=== PATIENT | female | born 1970 | race Caucasian/White ===

== ENCOUNTER → 2017-10-28 07:27 | Outpatient (CLI) | payer MEDICAID, SELFPAY ==
--- NOTE | 2017-10-28 11:00 | NEURO ---
NCS and/or EMG Patient Report Ordering Doctor: Julio Cesar Kimbrough DATE OF SERVICE: 10/28/17 This is a left upper extremity EMG and nerve conduction study performed on this 47-year-old female with a possible ganglion cyst over her left wrist, as well as radiation of pain and nonspecific achiness in all of her fingers as well as her forearm. Left upper extremity sensory and motor nerve conduction studies performed demonstrating normal median motor and sensory, ulnar motor and sensory, and radial sensory responses. The median and ulnar F waves are symmetrically preserved. Left upper extremity needle electromyography was performed. Muscles evaluated included the first dorsal interosseous, abductor pollicis brevis, brachioradialis, biceps, and triceps muscles. All muscles demonstrated normal insertional activity with absence of pathologic spontaneous activity. Motor unit potential recruitment pattern and amplitude was normal in all muscles tested. Impression: Normal EMG and nerve conduction study of the left upper extremity
== END ==
PROVIDERS: Visit Provider Orthopaedic Surgery
DX: R20.8 Other disturbances of skin sensation (principal); M25.532 Pain in left wrist
CPT/HCPCS: 95860; 95886; 95910

== ENCOUNTER → 2017-11-05 12:28 | Outpatient (CLI) | payer MEDICAID, SELFPAY ==
--- NOTE | 2017-11-05 12:43 | MRI_ITS ---
STUDY: MRI LEFT WRIST WITH AND WITHOUT CONTRAST REASON FOR EXAM: Left wrist mass, pain, fall 5 months ago. TECHNIQUE: Standardized fat and water weighted pulse sequences were obtained in all 3 orthogonal planes, pre-and post contrast administration. 7 ml of Gadavist contrast material was administered intravenously for the contrast portion of the examination. COMPARISON: None. FINDINGS: Normal visualized distal radius and ulna. There is a bone island in the subchondral distal radius. Normal distal radioulnar articulation (DRUJ). Normal triangular fibrocartilaginous complex (TFCC). Normal carpal bones. Normal radiocarpal, intercarpal and midcarpal articulations. Normal pisotriquetral articulation. Normal visualized interosseous scapholunate ligament. Normal extensor tendons. Normal flexor tendons. Normal carpal tunnel with a normal median nerve. Normal carpometacarpal articulation of the thumb. Normal second through fifth carpometacarpal articulations. Normal visualized metacarpal bones. There is a lobulated ganglion cyst at the palmar radial aspect of the wrist corresponding to the skin marker (inversion recovery coronal images 7-10; inversion recovery axial images 13-16) measuring 1.1 x 1.8 x 1.3 cm (AP x transverse x length). There is contrast enhancement of the wall of the ganglion cyst (postcontrast T1 axial images 18-20). There is a very small ganglion cyst at the dorsal aspect of the afpjsvmd-pbpmza-fznlohsj articulation (inversion recovery axial image 13) measuring 0.3 cm in transverse dimension. MRI/Upper Ext Joint Only W/WO Cont IMPRESSION: Ganglion cyst at the palmar radial aspect of the wrist corresponding to the skin marker. Very small dorsal ganglion cyst. Electronically Signed: Miles Ross MD at 14:25 EDT Tel , Service support ,
== END ==
DX: R22.32 Localized swelling, mass and lump, left upper limb (principal)
CPT/HCPCS: 73223; A9585; A4216

== ENCOUNTER 2017-12-03 16:41 | Observation (INO) | payer MEDICAID, SELFPAY ==
[2017-12-03] VITALS (9 sets, daily range): BP systolic 77–137; BP diastolic 56–88; PULSE 76–105; RESP 15–21; TEMP 36.8–37.1; O2SAT 96–99; BMI 28.5; BMI 26.6; BMI 26.7
--- NOTE | 2017-12-03 16:59 | RAD_ITS ---
STUDY: X-RAY CHEST REASON FOR EXAM: Female, 47 years old. Chest pain TECHNIQUE: Single AP portable view of the chest. COMPARISON: Prior study of 02/21/2017 FINDINGS: The lungs are clear and expanded. There is no demonstrated pleural abnormality. Normal size heart. Normal mediastinum and andreina. Normal visualized pulmonary arteries. Normal visualized aortic arch and descending thoracic aorta. Normal visualized thoracic spine. Normal visualized ribs, clavicles, and shoulders. There is no demonstrated abnormality of the visualized soft tissue structures of the upper abdomen. RAD/Chest 1 View (Portable) IMPRESSION: Normal x-ray examination of the chest. Electronically Signed: Song Webster MD at 19:12 EDT , Service support ,
--- NOTE | 2017-12-03 16:59 | EKG12_ITS ---
Test Reason : REPEAT Blood Pressure : / mmHG Vent. Rate : 072 BPM Atrial Rate : 072 BPM P-R Int : 128 ms QRS Dur : 084 ms QT Int : 412 ms P-R-T Axes : 060 048 040 degrees QTc Int : 451 ms Normal sinus rhythm Normal ECG Confirmed by TARUN PANCHAL MD ([id number]), newspaper copy editor CINDI SOLOMON ([id number]) on 12/05/2017 2:11:23 PM Referred By: FANTA Confirmed By:TARUN PANCHAL MD
--- NOTE | 2017-12-03 17:03 | ED.DCSUM_ITS ---
- ER Visit Summary Date of Service: 12/03/17 Chief Complaint: Chest pain History of Present Illness: The patient is a 47 F with rather sudden onset of chest pain that started approximately 30 minutes prior to arrival. She describes it as a squeezing and stabbing sensation up the center of her chest. It does somewhat go into her back. She states she has pain with a deep breath. She was given aspirin and 1 nitro with EMS with no significant change. Patient does report a history of aortic valve regurg. She is a history of hypertension and high cholesterol. She does report having a heart cath 2 or 3 years ago. At that time there was no significant blockage. Physical Examination: Vital signs are unremarkable. Patient sitting upright in bed. She is anxious and intermittently tearful. Head neck examination is unremarkable. Heart is regular rate and rhythm. Lung sounds are clear. Abdomen is soft and nontender. Lower external examination was no calf tenderness or edema. She has equal pulses throughout. Test Results: EKG is sinus at [address] change. Portable chest x- ray unremarkable. CBC was a white count of 12.3 and a hemoglobin of 15.8. Chemistry studies are normal. Troponin is less than 0.015. D-dimer is less than 0.27. Emergency Department Course and Treatment: Patient was given aspirin and 1 nitro with EMS. This did not change her pain. She was given 0.5 mg of Dilaudid along with Zofran ?2 doses in the emergency room. Due to the continued pain CTA of the chest was obtained and is unremarkable. Repeat EKG was obtained and is unchanged. Patient will be admitted for further treatment and evaluation. Treatment Plan: [] Disposition: Admit Impression: Chest pain This note was generated with [employer] dictation software. It may contain incorrect words, spelling, and punctuation that were not noted in review of the chart prior to signing ED Disposition - Plan for ED Patient: Chief Complaint: Chest Pain
[2017-12-03] MEDS: HYDROmorphone 0.5 MG/0.5 ML SYRINGE IV ×2 (17:05→17:50)
[2017-12-03] MEDS: Ondansetron 4 MG/2 ML Vial IV ×2 (17:05→17:50)
[2017-12-03] MEDS: 0.9% Normal Saline 1,000 ML 150 ML IV (17:11)
[2017-12-03 17:23] LABS: Absolute Lymphocyte Count 3.74 X10^3/ul (0.83-4.51); Absolute Neutrophil Count 7.4 X10^3/uL (2.0-7.7); Basophil# 0.04 X10^3/uL; Basophil% 0.3 % (0-1); Eosinophil# 0.24 X10^3/uL; Hematocrit 45.8 % (37-47); Hemoglobin 15.8 g/dl (12.0-15.0); Lymphocyte # 3.74 X10^3/ul (4.0); Lymphocyte % 30.4 % (19-41); Mean Corp Hgb Conc 34.5 g/gl (32-36); Mean Corpuscular Hgb 33.3 pg (27.0-32.0); Mean Corpuscular Volume 96.4 fL (81-99); Mean Platelet Vol. 11.4 fl (6.2-12.0); Monocyte# 0.84 X10^3/uL; Monocyte% 6.8 % (0-10); Neutrophil # 7.42 X10^3/uL (2.7-7.7); Neutrophil % 60.3 % (47-70); Platelet Count 330 K/mm3 (150-450); RBC Distribution Width CV 13.2 % (11.6-14.6); RBC Distribution Width SD 45.9 fl (35.1-43.9); Red Blood Count 4.75 M/mm3 (4.2-5.4); White Blood Count 12.3 K/mm3 (4.4-11.0)
[2017-12-03 17:24] LABS: POSITIVE COUNT NO; POSITIVE DIFFERENTIAL NO; POSITIVE MORPHOLOGY NO
[2017-12-03 17:35] LABS: BUN 10 mg/dL (7-18); Estimated Creatinine Clearance 68.76 ml/min; Glucose 98 mg/dL (74-106)
[2017-12-03 17:36] LABS: Anion Gap 8 (5-15); BUN/Creat Ratio 12.5 RATIO (10-20); Calcium,Total 9.7 mg/dL (8.5-10.1); Chloride 104 mmol/L (98-107); EST Glomerular Filtration Rate 81 mL/min (>60); Est Glom Filt Rate - Afr Amer 98 mL/min (>60); Potassium 3.7 mmol/L (3.5-5.1); Sodium Level 140 mmol/L (136-145)
[2017-12-03 17:46] LABS: D-Dimer Quantitative (DVT/PE) < 0.27 FEU/ug/m (0.27-0.49)
--- NOTE | 2017-12-03 18:04 | CT_ITS ---
STUDY: CTA CHEST REASON FOR EXAM: Female, 47 years old. Sternal pain x30 minutes RADIATION DOSAGE (If Supplied By Facility): CTDIvol = ( 5.48 ) mGy, DLP = ( 228.57 ) mGycm TECHNIQUE: The examination was performed with the intravenous administration of 75 ml of Isovue 370 contrast material. Post-processing of the angiographic images was performed, with multiplanar reformation and 3D reconstruction. Individualized dose optimization techniques were used for this CT. COMPARISON: None. FINDINGS: Normal enhancement of the main pulmonary artery and right and left pulmonary arteries. Normal enhancement of the bilateral peripheral pulmonary arteries. There is no demonstrated pulmonary embolism. Normal thoracic aorta and visualized great vessels. There is no demonstrated aortic dissection. Normal heart and pericardium. Normal mediastinum. Normal hilar regions. Normal visualized trachea and bronchi. The lungs are well expanded. There are mild emphysematous changes of the lungs. Normal pleura. Normal chest wall structures. Normal osseous structures. Normal visualized upper abdomen. CT/CTA Chest W/WO Contrast IMPRESSION: Normal CTA chest examination, without a demonstrated pulmonary embolism or arterial dissection. There are mild emphysematous changes of the lungs. Electronically Signed: Song Webster MD at 18:55 EDT , Service support ,
--- NOTE | 2017-12-03 19:41 | EKG12_ITS ---
Test Reason : ADMISSION EKG Blood Pressure : / mmHG Vent. Rate : 078 BPM Atrial Rate : 078 BPM P-R Int : 130 ms QRS Dur : 082 ms QT Int : 394 ms P-R-T Axes : 060 055 046 degrees QTc Int : 449 ms Normal sinus rhythm Normal ECG When compared with ECG of 03-DEC-2017 16:44, MANUAL COMPARISON REQUIRED, DATA IS UNCONFIRMED Confirmed by ANSLEY LUNA, TARUN ([id number]), newspaper managing editor CINDI SOLOMON ([id number]) on 12/09/2017 2:17:00 PM Referred By: DR SEBASTIAN Confirmed By:TARUN PANCHAL MD
--- NOTE | 2017-12-03 19:55 | HP.PCM_ITS ---
Problem List (1) Tobacco use Status: Chronic (2) COPD (chronic obstructive pulmonary disease) Status: Chronic Qualifiers: Chronic bronchitis type: unspecified (3) Anxiety Status: Chronic (4) HLD (hyperlipidemia) Status: Chronic Qualifiers: Hyperlipidemia type: unspecified Qualified Code(s): E78.5 - Hyperlipidemia , unspecified (5) TIA (transient ischemic attack) Status: Chronic Qualifiers: Transient cerebral ischemia type: unspecified Qualified Code(s): G45.9 - Transient cerebral ischemic attack, unspecified (6) HTN (hypertension) Status: Chronic Qualifiers: Hypertension type: essential hypertension Qualified Code(s): I10 - Essential (primary) hypertension (7) Chest pain Status: Acute Qualifiers: Chest pain type: unspecified Qualified Code(s): R07.9 - Chest pain, unspecified History of Present Illness Date of Admission: 12/03/17 Chief Complaint: Chest pain The patient is a 47 y/o F w/ PMHx: Tobacco use, Chronic COPD, HTN, HLD, Hx TIA, Anxiety, Hx Prior Cocaine Usage who presents to the [facility] ED on 12/03/17 with onset prior to ED arrival tight squeezing chest discomfort in the midsternal region with radiation to the back, also noting sharp intermittent stabbing pain with this and noting increased pain with deep inspiration with dyspnea 10/10 initially with dyspnea associated with no nausea, emesis or diaphoresis associating while at rest watching TV. In the ED work-up included T 98.8, HR 105 -->81, BP 137/75-->77/62 after pain regimen, RR 20-->16, 97% on RA, CBC w/ WBC 12.3, Hgb 15.8, Plts 330 without shift, D-dimer < 0.27, unremarkable BMP, trop < 0.015, CXR without acute findings, CTPA without evidence PE, chronic COPD changes, EKG w/ SR, no acute evidence of chronic changes. In the ED patient administered zofran, dilaudid, fentanyl, asa therapy. Past Medical History Past Medical History (Chronic Problems): Chronic Problems Tobacco use (Chronic) COPD (chronic obstructive pulmonary disease) (Chronic) Anxiety (Chronic) HLD (hyperlipidemia) (Chronic) TIA (transient ischemic attack) (Chronic) Anterior scleritis of right eye (Chronic) HTN (hypertension) (Chronic) Allergies codeine Allergy (Verified 12/03/17 16:48) Itching gabapentin [From Neurontin] Adverse Reaction (Verified 12/03/17 16:48) Swelling Home Medications: Ambulatory Orders Medication Instructions Recorded ALPRAZolam [Xanax] 0.5 mg PO DAILY 04/30/14 Losartan/Hydrochlorothiazide 1 tab PO DAILY 04/30/14 [Hyzaar 100-25 Tablet] Oxycodone HCl/Acetaminophen 1 tablet PO BID PRN PRN 01/18/16 [Percocet 7.5-325 mg Tablet] Ibuprofen [Motrin] 800 mg PO TID PRN PRN #40 tablet 01/26/16 Guaifenesin/Pseudoephedrne HCl 1 each PO BID #14 tab.er.12h 02/21/17 [Mucinex D ER 1,200-120 mg Tab] Albuterol Sulfate [Ventolin Hfa] 2 puff IH Q4H PRN PRN 12/03/17 Rosuvastatin Calcium [Rosuvastatin 20 mg PO DAILY 12/03/17 Calcium] Surgical History: - - Bilateral knee arthroplastic surgery, bilateral ulnar nerve repositioning, carpal tunnel release, right shoulder surgery ?2, hysterectomy, recent left ganglion cyst removal wrist. Psychiatric History: Anxiety SERVICE OBSERVER History: No pertinent SERVICE OBSERVER history Lives: Spouse/ Significant Other Smoking Status: Current every day smoker - 1 ppd. Tobacco Use: Cigarettes Alcohol: Occasional Drugs: None - Past usage of cocaine, notes clean x 2-3 years. - *Family History Paternal History Items: Heart Disease, Hypertension, Stroke - Father had brain aneurysm Maternal History Items: Heart Disease, Hypertension Review of Systems Constitutional: Denies: Chills, Fever, Weight Change HEENT: Denies: Head Aches, Sinus Congestion, Sinus Drainage Cardiovascular: Reports: Chest Pain, Chest Tightness. Denies: Palpitations Respiratory: Reports: Pleuritic Pain, Shortness of Breath. Denies: Cough, Shortness of breath at rest, Sputum production, Wheezing Gastrointestinal: Denies: Abdominal Pain, Nausea, Vomiting Genitourinary: Denies: Dysuria Musculoskeletal: Reports: Back Pain. Denies: Joint Pain, Joint Tenderness Skin: Denies: Rash, Wounds Neurological: Denies: Numbness, Tingling, Focal weakness Psychiatric: Denies: Anxiety, Depression, Homicidal Ideations, Suicidal Ideations Hematologic/ Lymphatic: Denies: Easy Bruising, Easy Bleeding VTE Information - Inpt Only VTE Present on Admission: No VTE Mechan Device Prophylaxis: SCD's VTE Pharm Prophylaxis ordered?: Yes Patient Problems: Active and Suspected Problems Chest pain (Acute) Subjective: Seated upright in the ED bed, notes ongoing discomfort, worse with inspiration. Objective: Physical Examination: General: awake, alert, oriented x 3 and cooperative, seated upright in the ED bed, notes ongoing discomfort, reproducible discomfort. Skin: normal color, turgor, no icterus, cyanosis. HEENT: AT/NC, EOMI, PERRLA, mildly dry MM, no carotid bruits or JVD noted. Lungs: Diminished bases, mild effort, difficult as noting pain w/ inspiration, no rales, ronchi or wheezing. Heart: Regular rate and rhythm; no gallop, rub audible, reproducible discomfort w/ anterior palpation of the chest. Abdomen: soft, NTTP, ND, normal BS, no HSM. Extremities: no cyanosis, clubbing, or edema. Neurological: patient awake, alert, oriented x 3; cognitive function intact; pupils equally reactive to light and accomodation; cranial nerves II-XII grossly normal, moving all 4 extremities, no focal deficits, strength severely globally decreased secondary to acute presentation. Psychiatric: affect appears normal, no acute evidence of depressive or anxiety feelings. - Physical Exam Vital Signs Temp Pulse Resp BP Pulse Ox 98.8 F 81 16 77/62 L 97 12/03/17 16:44 12/03/17 18:42 12/03/17 18:42 12/03/17 18:42 12/03/17 18:42 Oxygen Flow Rate (L/min) 2 Oxygen Delivery Method Room Air Weight: 155 lb 13.869 oz Body Mass Index (BMI) 28.5 Finger Stick Blood Glucose 89 Laboratory Tests Past 24 Hrs 12/03/17 12/03/17 12/03/17 16:52 16:52 16:52 WBC 12.3 H RBC 4.75 Hgb 15.8 H Hct 45.8 MCV 96.4 MCH 33.3 H MCHC 34.5 RDW 13.2 RDW Differential 45.9 H Plt Count 330 MPV 11.4 Immature Gran % (Auto) 0.200 Neut % (Auto) 60.3 Lymph % (Auto) 30.4 Worth % (Auto) 6.8 Eos % (Auto) 2.0 Baso % (Auto) 0.3 Absolute Neuts (auto) 7.4 Absolute Lymphs (auto) 3.74 Total Counted Not Reportable D-Dimer Quant (PE/DVT) < 0.27 L Sodium 140 Potassium 3.7 Chloride 104 Carbon Dioxide 28.0 Anion Gap 8 BUN 10 Creatinine 0.80 Estim Creat Clear Calc 68.76 Est GFR (MDRD) Af Amer 98 Est GFR (MDRD) Non-Af 81 BUN/Creatinine Ratio 12.5 Glucose 98 Calcium 9.7 Troponin I < 0.015 Assessment/Plan Active and Suspected Problems Chest pain (Acute) The patient is a 47 y/o F w/ PMHx: Tobacco use, Chronic COPD, HTN, HLD, Hx TIA, Anxiety, Hx Prior Cocaine Usage who presents to the [facility] ED on 12/03/17 with onset prior to ED arrival tight squeezing chest discomfort in the midsternal region with radiation to the back, noting increased pain with deep inspiration with dyspnea 10/10 initially with dyspnea associated with no nausea, emesis or diaphoresis associating while at rest watching TV. (1) Atypical Chest Pain: Likely musculoskeletal but notable history. In the ED work-up included T 98.8, HR 105-->81, BP 137/75-->77/62 after pain regimen, RR 20-->16, 97% on RA, CBC w/ WBC 12.3, Hgb 15.8, Plts 330 without shift, D-dimer < 0.27, unremarkable BMP, trop < 0.015, CXR without acute findings, CTPA without evidence PE, chronic COPD changes, EKG w/ SR, no acute evidence of chronic changes. Will admit to telemetry, place on a monitored bed to assure no acute myocardial infarction with serial cardiac enzymes and EKGs. Patient is able to perform exercise and does not have LBBB, V-pacing, ST-T changes, LVH, prior PCI history and is not on digoxin thus will proceed with AM exercise stress echo test. ASA, NG, morphine. FLP in AM. Mag pending. If cardiac evaluation unremarkable would plan to initiate toradol, possible discharge to home on mobic regimen. (2) Hypertension: Continue home regimen including losartan, hydrochlorothiazide w/ hold parameters given hypotension w/ pain regimen while in the ED, PRN hydralazine. (3) Hyperlipidemia: Continue home statin regimen. AM FLP. (4) Chronic COPD: ATC duonebs, PRN albuterol, HOB, IS parameters. (5) Tobacco Abuse: Encouraged cessation, inpatient consultation per RT, NR if desired. (6) History of Polysubstance abuse: Prior hx cocaine, will obtain UDS. (7) DVT Prophylaxis: SCDs, lovenox. Code Visit OBSV E&M: 49771 Initial observation care L3
[2017-12-03] MEDS: fentaNYL 100 MCG/2 ML Ampul 12.5 MCG IV (19:59)
--- NOTE | 2017-12-03 20:33 | EKG12_ITS ---
Test Reason : CHEST PAIN Blood Pressure : / mmHG Vent. Rate : 100 BPM Atrial Rate : 100 BPM P-R Int : 118 ms QRS Dur : 074 ms QT Int : 352 ms P-R-T Axes : 069 060 061 degrees QTc Int : 454 ms Normal sinus rhythm Normal ECG Confirmed by TARUN PANCHAL MD ([id number]), manager editorial CINDI SOLOMON ([id number]) on 12/05/2017 2:07:31 PM Referred By: TODD Confirmed By:TARUN PANCHAL MD
[2017-12-03] MEDS: ALPRAZolam 0.5 MG Tablet PO (21:25)
[2017-12-03] MEDS: Ketorolac 30 MG/ML Syringe IV (21:25)
[2017-12-03] MEDS: 0.9% NaCl Peripheral Flush Adult/Peds IV (21:27)
[2017-12-03] MEDS: 0.9% Normal Saline 1,000 ML 100 ML IV (21:37)
[2017-12-03 21:41] LABS: Magnesium 2.2 mg/dL (1.6-2.6)
[2017-12-03] MEDS: HYDROcodone Bitartrate/Apap 5/325 Tablet PO (22:26)
[2017-12-03 22:30] LABS: Amphetamine Urine VISTA NEGATIVE (<1000 ng/mL); Barbiturate Urine VISTA NEGATIVE (< 200 ng/mL); Benzodiazepine Urine VISTA POSITIVE (< 200 ng/mL); Cocaine Urine VISTA NEGATIVE (< 300 ng/mL); Ecstacy Urine VISTA NEGATIVE (< 500 ng/mL); Methadone Urine VISTA NEGATIVE (< 300 ng/mL); PCP Urine VISTA NEGATIVE (< 25 ng/mL); THC Urine VISTA NEGATIVE (< 50 ng/mL); Vista UDS pH Range 5
[2017-12-03] MEDS: Famotidine 20 MG Tablet PO (22:40)
[2017-12-03] MEDS: Ipratropium/Albuterol Sulfate 3 ML AMPUL.NEB INHALATION (23:34)
[2017-12-04] VITALS (9 sets, daily range): BP systolic 103–183; BP diastolic 44–77; PULSE 68–86; RESP 16–18; TEMP 36.6–36.9; O2SAT 95–98
[2017-12-04] MEDS: Morphine 4 MG/ML Syringe IV (02:34)
[2017-12-04] MEDS: 0.9% NaCl Peripheral Flush Adult/Peds IV (02:39)
[2017-12-04] MEDS: Albuterol 2.5 MG/3 ML VIAL.NEB. INHALATION (03:12)
[2017-12-04 03:56] LABS: Hematocrit 40.3 % (37-47); Hemoglobin 13.3 g/dl (12.0-15.0); Mean Corpuscular Hgb 32.8 pg (27.0-32.0); Mean Corpuscular Volume 99.3 fL (81-99); Mean Platelet Vol. 11.2 fl (6.2-12.0); Platelet Count 243 K/mm3 (150-450); RBC Distribution Width CV 13.2 % (11.6-14.6); RBC Distribution Width SD 47.4 fl (35.1-43.9); Red Blood Count 4.06 M/mm3 (4.2-5.4); Scan Indicated on CBC? Y/N NO; White Blood Count 9.5 K/mm3 (4.4-11.0)
[2017-12-04 04:08] LABS: Prothrombin Time (Protime)PT. 13.2 SECONDS (11.7-14.9)
[2017-12-04 04:09] LABS: Partial Thromboplast Time 27.2 Seconds (24.1-36.2)
[2017-12-04 04:17] LABS: Anion Gap 7 (5-15); BUN 12 mg/dL (7-18); BUN/Creat Ratio 17.3 RATIO (10-20); Calcium,Total 8.6 mg/dL (8.5-10.1); Chloride 108 mmol/L (98-107); Cholesterol 123 mg/dL (200); Creatinine, Serum 0.69 mg/dL (0.55-1.02); EST Glomerular Filtration Rate 96 mL/min (>60); Est Glom Filt Rate - Afr Amer 117 mL/min (>60); Estimated Creatinine Clearance 79.72 ml/min; Glucose 92 mg/dL (74-106); High Density Lipoprotein 37 mg/dL; Potassium 3.6 mmol/L (3.5-5.1); Sodium Level 140 mmol/L (136-145); Triglycerides 144 mg/dL; Very Low Density Lipoprotein 29 mg/dL (5-40)
--- NOTE | 2017-12-04 05:55 | EKG12_ITS ---
Test Reason : AM EKG Blood Pressure : / mmHG Vent. Rate : 071 BPM Atrial Rate : 071 BPM P-R Int : 158 ms QRS Dur : 084 ms QT Int : 408 ms P-R-T Axes : 075 058 053 degrees QTc Int : 443 ms Normal sinus rhythm Normal ECG When compared with ECG of 03-DEC-2017 21:41, MANUAL COMPARISON REQUIRED, DATA IS UNCONFIRMED Confirmed by ANSLEY LUNA, TARUN ([id number]), purchase request editor CINDI SOLOMON ([id number]) on 12/12/2017 3:04:58 PM Referred By: DR SEBASTIAN Confirmed By:TARUN PANCHAL MD
--- NOTE | 2017-12-04 05:55 | STEWCON_ITS ---
Reason For Study: CHEST PAIN Stress Results Protocol: Dobutamine Stress Echocardiogram Maximum Predicted HR: 173 bpm Target HR: 147 bpm% Maximum Predicted HR: 87 % DurationHeart Rate Stage (mm:ss) (bpm) BPDos e BASELINE 65 106/79 DSE- 10 MCG 3:21 83 128/6410.00 DSE- 20 MCG 3:09 13 3 112/8420.00 DSE- 30 MCG 1:08 15 1 / 30. 00 RECOVERY 97 113/67 Stress Duration: 7:38 mm:ss Maximum Stress HR: 151 bpm Baseline Echocardiogram Findings The estimated ejection fraction is 65 %. Stress Echo Wall motion Data Resting WMIntermediate WMStress WM Resting Wall Motion Wall Motion Stress No regional wall motion No regional wall motion abnormalities noted. abnormalities noted. EKG Data The baseline ECG demonstrates normal sinus rhythm with at rate of _ beats per minute. During stress, there were no ST or T wave changes noted to suggest ischemia. No arrhythmias noted. No clinical angina was noted. The patient was titrated from 10 mcg to a maximun of 30 mcg of dobutamine during the stress. The maximum heart rate attained was 151 beats per minute. This was 87% of maximum predicted heart rate. Interpretation Summary The estimated ejection fraction is 65 %. Normal adequate dobutamine echocardiogram. Negative for ischemia by ECG and ECHO criteria. No anginal symptoms noted. No arrhythmias noted. Appropriate BP response to dobutamine. Final LVEF=75%. The patient was titrated from 10 mcg to a maximun of 30 mcg of dobutamine during the stress. Doppler Measurements & Calculations AI max jeremy: 473.1 cm/sec AI max P.5 mmHg AI dec slope: 264.5 cm/sec2 AI P1/2t: 524.0 msec Ordering Physician: Vidhya Saavedra Referring Physician: SHEYLA MCMAHAN Performed By: Torrey Mcdonald RCS
[2017-12-04] MEDS: 0.9% Normal Saline 1,000 ML 100 ML IV (05:58)
[2017-12-04] MEDS: Losartan Potassium 100 MG Tablet PO (05:59)
[2017-12-04] MEDS: Aspirin E.C. 81 MG Tablet PO (06:00)
[2017-12-04] MEDS: ALPRAZolam 0.5 MG Tablet PO (07:10)
[2017-12-04] MEDS: Ipratropium/Albuterol Sulfate 3 ML AMPUL.NEB INHALATION (07:21)
--- NOTE | 2017-12-04 09:28 | NURSING ---
Pt to stress lab at this time.
--- NOTE | 2017-12-04 11:13 | NURSING ---
In room per pt request. Pt angry that she can not have anything to eat following stress test. Explained to pt that she can have clear liquids until stress report comes back. Also explained the reason behind this is in case the stress is abnormal and a cardiac cath is indicated. Pt states I dont fucking care. I'm hungry and want a cigarette. Pt was offered clears and a nicotene patch and refused both. Pt continued to curse at staff and decline options provided.
--- NOTE | 2017-12-04 11:18 | NURSING ---
Pt cursing at staff, moving arms and refuses to hold still for bp.
--- NOTE | 2017-12-04 11:40 | PCM.DC ---
- Discharge Diagnoses Current Active Problems: Current Active and Chronic Problems Tobacco use (Chronic) COPD (chronic obstructive pulmonary disease) (Chronic) Anxiety (Chronic) HLD (hyperlipidemia) (Chronic) TIA (transient ischemic attack) (Chronic) Chest pain (Acute) You will use the following diet at home:: No restrictions Discharge Activity: Return to Normal Activity, May not drive while taking narcotic pain medications. Allergies/Adverse Reactions: Allergies codeine Allergy (Verified 12/03/17 16:48) Itching gabapentin [From Neurontin] Adverse Reaction (Verified 12/03/17 16:48) Swelling Medications to take at Discharge ALPRAZolam [Xanax] 1 mg PO DAILY 04/30/14 Losartan/Hydrochlorothiazide [Hyzaar 100-25 Tablet] 1 tab PO DAILY 04/30/14 Oxycodone HCl/Acetaminophen [Percocet 7.5-325 mg Tablet] 1 tablet PO BID PRN PRN 01/18/16 Ibuprofen [Motrin] 800 mg PO TID PRN PRN #40 tablet 01/26/16 Albuterol Sulfate [Ventolin Hfa] 2 puff IH Q4H PRN PRN 12/03/17 Rosuvastatin Calcium [Rosuvastatin Calcium] 20 mg PO DAILY 12/03/17 Primary Care Physician: Yusuf Serrano,Out of [Primary Care Provider] - Please follow up with your Primary Care Physician in: in 3-5 days Proposed Discharge Date: 12/04/17
--- NOTE | 2017-12-04 11:43 | PCM.DC.SUM ---
Discharge Date and Diagnosis - Problem List Patient Problems: Active and Suspected Problems Chest pain (Acute) Date of Admission: 12/03/17 Date of Discharge: 12/04/17 - Primary Discharge Diagnosis Active and Suspected Problems Chest pain (Acute) - Secondary Discharge Diagnosis Chronic Problems Tobacco use (Chronic) COPD (chronic obstructive pulmonary disease) (Chronic) Anxiety (Chronic) HLD (hyperlipidemia) (Chronic) TIA (transient ischemic attack) (Chronic) Anterior scleritis of right eye (Chronic) HTN (hypertension) (Chronic) Hospital Course and Treatment Imaging Results: Clinical Impression(s) from Imaging Studies Chest X-Ray 12/03/17 16:59 IMPRESSION: Normal x-ray examination of the chest. Electronically Signed: Song Webster MD at 19:12 EDT , Service support , Chest CTA 12/03/17 18:04 IMPRESSION: Normal CTA chest examination, without a demonstrated pulmonary embolism or arterial dissection. There are mild emphysematous changes of the lungs. Electronically Signed: Song Webster MD at 18:55 EDT , Service support , Summary of Care Provided: The patient is a 47 year old F was past medical history significant for hypertension, with chest pain 1. Chest pain patient was placed on a monitored bed did rule out IA with serial cardiac enzymes patient underwent a stress echo which was negative for stress-induced ischemia patient also underwent CT of the chest with contrast which is negative for pulmonary embolism 2. Hypertension-blood pressure controlled, home medications continued with dose adjustment as needed 3. Dyslipidemia-patient is on statin therapy, continued at home dose 4. Tobacco dependence: Patient was counseled on cessation of the nicotine patch for tobacco cravings. 5. COPD confirmed with CT of the chest 7. DVT prophylaxis Discharge Activity: Return to Normal Activity, May not drive while taking narcotic pain medications. Home Medications: Medications to take at Discharge ALPRAZolam [Xanax] 1 mg PO DAILY 04/30/14 Losartan/Hydrochlorothiazide [Hyzaar 100-25 Tablet] 1 tab PO DAILY 04/30/14 Oxycodone HCl/Acetaminophen [Percocet 7.5-325 mg Tablet] 1 tablet PO BID PRN PRN 01/18/16 Ibuprofen [Motrin] 800 mg PO TID PRN PRN #40 tablet 01/26/16 Albuterol Sulfate [Ventolin Hfa] 2 puff IH Q4H PRN PRN 12/03/17 Rosuvastatin Calcium 20 mg PO DAILY 12/03/17 Primary Care Physician: Yusuf Doctor,Out of [Primary Care Provider] - Please follow up with your Primary Care Physician in: in 3-5 days Medical Necessity - Tobacco Use Smoking Status: Current every day smoker Tobacco Use: Cigarettes Meaningful Use Info Meaningful Use Diagnoses (Choose all that apply): None applicable Code Visit OBSV E&M: 03382 Observation care discharge
== END 2017-12-04 13:00 | disposition home or self-care (01) ==
LOC: ED 18:16 → PCU 19:59
PROVIDERS: Admitting Provider Family Medicine; Emergency Provider Emergency Medicine; Visit Provider Internal Medicine
DX: R07.89 Other chest pain (principal); I10 Essential (primary) hypertension; J44.9 Chronic obstructive pulmonary disease, unspecified; E78.5 Hyperlipidemia, unspecified; F41.9 Anxiety disorder, unspecified; Z79.899 Other long term (current) drug therapy; Z86.73 Personal history of transient ischemic attack (TIA), and cerebral infarction without residual deficits; F17.210 Nicotine dependence, cigarettes, uncomplicated
CPT/HCPCS: 36415; 71045; 71275; 80048; 80061; 80307; 83735; 84484; 85025; 85027; 85379; 85610; 85730; 93005; 93017; 93350; 94640; 96361; 96374; 96375; 96376; 99218; 99285; 99406; J7030; Q9967; A4216; G0378; J2405

== ENCOUNTER → 2017-12-25 13:11 | Outpatient (CLI) | payer MEDICAID, SELFPAY ==
[2017-12-25 13:43] VITALS: PULSE 76; PULSE 81; PULSE 84; PULSE 88; PULSE 91; PULSE 92; PULSE 93; PULSE 94; O2SAT 95; O2SAT 96; O2SAT 97; O2SAT 98
--- NOTE | 2017-12-25 14:13 | PCM.PSN.6M ---
PSN 6 Minute Walk Test - 6 Minute Walk Test 6 Minute Walk Test: 6 Minute Walk Test PSN:6-Minute Walk Test Start: 12/25/17 13:43 Freq: Status: Active Protocol: RESP.6MINW Document 12/25/17 13:43 [facility] (Rec: 12/25/17 13:46 [facility] [id number]) 6 Minute Walk Test Date Performed 12/25/17 Time Performed 13:30 Height 5 ft 3 in Weight: 68.039 kg Weight in Pounds 150.[address]: Tylor Walker FIO2 (% Oxygen) 21 Assistive device used: None Pre-test Oxygen Delivery Method Room Air Pulse Ox (%) 98 Pulse Rate (60-100 beats/min) 76 Dyspnea Raquel Scale (0-10) 1 1st minute Oxygen Delivery Method Room Air Pulse Ox (%) 96 Pulse Rate (60-100 beats/min) 84 Dyspnea Raquel Scale (0-10) 1 2nd minute Oxygen Delivery Method Room Air Pulse Ox (%) 96 Pulse Rate (60-100 beats/min) 88 Dyspnea Raquel Scale (0-10) 1 3rd minute Oxygen Delivery Method Room Air Pulse Ox (%) 96 Pulse Rate (60-100 beats/min) 91 Dyspnea Raquel Scale (0-10) 1 4th minute Oxygen Delivery Method Room Air Pulse Ox (%) 97 Pulse Rate (60-100 beats/min) 94 Dyspnea Raquel Scale (0-10) 2 Number of Rests Taken 1 Reported Symptoms Increased Work of Breathing 5th minute Oxygen Delivery Method Room Air Pulse Ox (%) 96 Pulse Rate (60-100 beats/min) 93 Dyspnea Raquel Scale (0-10) 2 Number of Rests Taken 1 Reported Symptoms Increased Work of Breathing 6th minute Oxygen Delivery Method Room Air Pulse Ox (%) 95 Pulse Rate (60-100 beats/min) 92 Dyspnea Raquel Scale (0-10) 2 Reported Symptoms Increased Work of Breathing Post-test Oxygen Delivery Method Room Air Pulse Ox (%) 97 Pulse Rate (60-100 beats/min) 81 Dyspnea Raquel Scale (0-10) 1 Full Laps Walked 17 Partial Lap, Number of Tiles Walked 42 Total Distance Walked (ft) 1045 - Interpretation Interpretation: The patient was able to ambulate 1045 feet over the course of 6 minutes on room air with no assistive devices, but did require 2 breaks secondary to dyspnea and leg fatigue. The patient experienced no significant desaturation or tachycardia during testing. These findings are consistent with a musculoskeletal limitation exercise tolerance. - Recommendations Recommendations: No supplemental oxygen is indicated at this time.
== END ==
PROVIDERS: Visit Provider Internal Medicine Critical Care Medicine
DX: J44.9 Chronic obstructive pulmonary disease, unspecified (principal); Z72.0 Tobacco use
CPT/HCPCS: 94618

== ENCOUNTER → 2018-01-08 08:45 | Outpatient (CLI) | payer MEDICAID, SELFPAY ==
--- NOTE | 2018-01-09 05:57 | PFTCOMP ---
COMPLETE PULMONARY FUNCTION TEST INTERPRETATION Brief HPI: Patient is a 47 year old female, currently under the care of myself, who presents to [facility] for complete pulmonary function tests secondary to diagnosis of COPD. Respiratory therapist reports poor effort and reproducible results. Interpretation: Forced expiration spirometry shows a moderate large airways obstructive ventilatory defect with an FEV1 of 67% predicted. There is a significant bronchodilator response in FVC by ATS criteria. Spirograms are of poor quality and plateau slowly, indicating slowly emptying areas of the lungs. The respiratory flow volume loop shows decreased expiratory flow rates at high lung volumes consistent with small airways obstruction. Lung volumes by body plethysmography show a normal total lung capacity at 4.07 L, 89% predicted. FRC and RV are elevated out of proportion. Lung volume measurements are consistent with hyperinflation and air-trapping. Diffusion capacity by carbon monoxide is normal at 87% predicted. The airway resistance is elevated. No previous pulmonary function tests were available for review. Impression: Partially reversible moderate large airways obstructive ventilatory defect with preserved diffusion capacity in a pattern consistent with chronic bronchitis
--- NOTE | 2018-01-09 06:00 | PFTCOMP_ITS ---
COMPLETE PULMONARY FUNCTION TEST INTERPRETATION Brief HPI: Patient is a 47 year old female, currently under the care of myself, who presents to [facility] for complete pulmonary function tests secondary to diagnosis of COPD. Respiratory therapist reports poor effort and reproducible results. Interpretation: Forced expiration spirometry shows a moderate large airways obstructive ventilatory defect with an FEV1 of 67% predicted. There is a significant bronchodilator response in FVC by ATS criteria. Spirograms are of poor quality and plateau slowly, indicating slowly emptying areas of the lungs. The respiratory flow volume loop shows decreased expiratory flow rates at high lung volumes consistent with small airways obstruction. Lung volumes by body plethysmography show a normal total lung capacity at 4.07 L , 89% predicted. FRC and RV are elevated out of proportion. Lung volume measurements are consistent with hyperinflation and air-trapping. Diffusion capacity by carbon monoxide is normal at 87% predicted. The airway resistance is elevated. No previous pulmonary function tests were available for review. Impression: Partially reversible moderate large airways obstructive ventilatory defect with preserved diffusion capacity in a pattern consistent with chronic bronchitis
== END ==
PROVIDERS: Visit Provider Internal Medicine Critical Care Medicine
DX: J44.9 Chronic obstructive pulmonary disease, unspecified (principal); Z72.0 Tobacco use
CPT/HCPCS: 94060; 94726; 94729

== ENCOUNTER → 2018-07-08 12:14 | Outpatient (CLI) | payer MEDICAID, SELFPAY ==
[2018-01-13 10:11] VITALS: BMI 28.9
--- OUTSIDE RECORDS SUMMARY | 2018-08-24 15:44 | XMS RPT_ITS ---
:1970 Author Organization [employer] Address [address] [place] [address] Phone Care Team Providers Name Role Phone Mickie JOSEPH, Sandra Lennon Unavailable Reason for Visit Reason For Visit Description Start Date Postop - 1st visit Preliminary reason for visit data, not yet signed by the author as of left wrist post Excision of left volar wrist mass measuring 2 x 2 cm. on 11/10/2017 Preliminary reason for visit data, not yet signed by the author as of Chief Complaint Chief Complaint Description Start Date left wrist post Excision of left volar wrist mass measuring 2 x 2 cm. on 11/10/2017 Preliminary chief complaint data, not yet signed by the author as of Instructions Instruction Description Start Date Patient advised to follow-up with Primary Care Physician for BMI management. Plan of Care Type Date Detail Appointment 07:15 PM Sandra Corado PA-C, [address] [facility] [address] [facility] [address], [place], [address], Appointment 01:00 PM Ward Knowles MD, [address] [facility] [address], [facility] [address], [place], [address], Medications Medication Instructions Start Stop Generic Name NDC Provider Date Date ROSUVASTATIN 1 tab daily / ROSUVASTATIN 64696178828 Ward Chapman CALCIUM 20 MG 13 CALCIUM Eleni LUNA TABS IBUPROFEN 800 takes 1 tablet / IBUPROFEN [id number] Elenoora Morataya MG TABS twice a day as 26 BANK EXAMINER needed OMEPRAZOLE 40 takes 1 capsuel / OMEPRAZOLE 04946007192 Eleonora Morataya MG CPDR once a day as 26 BANK EXAMINER needed PERCOCET takes 1 tablet / OXYCODONE-ACETA 14885223082 Eleonora Morataya 7.5-325 MG TABS every 12 hours 26 MINOPHEN BANK EXAMINER as needed HYZAAR 100-25 takes 1 tablet / LOSARTAN 68648227234 Eleonora Morataya MG TABS once a day 26 POTASSIUM-HCTZ BANK EXAMINER XANAX 1 MG TABS takes 1 tablet / ALPRAZOLAM 46645889320 Eleonora Morataya every 12 hours 26 BANK EXAMINER as needed Conditions or Problems Problem Name Problem Onset Status Entry Provider Comment Standard Annotate Code Date Date Description Encounter for 510068911 Active Sandra Lennon Patient surgical (SNOMED CT) / Mickie encounter wound PA-C status dressing change Mass of left 102640353 Active Ward A Mass of wrist (SNOMED CT) / Eleni LUNA wrist Cervical 14185617 Active Sourav Santiago Cervical nerve root (SNOMED CT) / Marlon LUNA nerve root impingement compression Allergies, Adverse Reactions, Alerts Allergy Name Reaction Start Date Severity Status Provider Description BENADRYL became paranoid Severe Active oSurav Mason (DIPHENHYDRAMINE HCL) CODEINE hives and itching Mild Active Sourav Mason PHOSPHATE Social History No information available. Vital Signs Date Name Value Unit Description BMI (Body Mass 26.31 kg/m2 Body Mass Index Index) [Ratio] Preliminary vital sign data, not yet signed by the author as of Body Temperature 98.3 [degF] temperature E&M Preliminary vital sign data, not yet signed by the author as of Body Temperature 36.8 Barb temperature in centigrade E&M Preliminary vital sign data, not yet signed by the author as of BP Diastolic 83 mm[Hg] blood pressure, diastolic Preliminary vital sign data, not yet signed by the author as of BP Systolic 130 mm[Hg] blood pressure, systolic Preliminary vital sign data, not yet signed by the author as of Heart Rate 80 /min pulse rate E&M Preliminary vital sign data, not yet signed by the author as of Height 63 [in_us] height E&M Preliminary vital sign data, not yet signed by the author as of Height 160 cm height in centimeters E&M Preliminary vital sign data, not yet signed by the author as of Weight Measured 148 [lb_av] weight E&M Preliminary vital sign data, not yet signed by the author as of Weight Measured 67 kg weight in kilograms E&M Preliminary vital sign data, not yet signed by the author as of Results Date Name Value Unit Range Flag Description Office Visit: Postop - 1st visit, Rm: rodrigue MEDS REVIEW Done Documentation of current medications (procedure) Preliminary observation data, not yet signed by the author as of XRAY HX of the left wrist xray history on 10/14/2017 at [facility] Preliminary observation data, not yet signed by the author as of Preliminary observation data, not yet signed by the author as of Clinical Summary: HMSPatientID O account number Pathology Report: Surgical Pathology [id number] SEE BELOW GE use only - for LinkLogic import when terms are not otherwise specified Procedures Code Procedure Name Date Entry Date G8730 Pain assessment documented as positive - follow-up documented G8427 Current medications documented 1036F Tobacco screening was negative - non user G8417 BMI documented as above normal parameters - follow-up documented G8783 Blood pressure within normal parameters - no follow-up required [facility]-[id number] Patient Encounter Medications Administered No information available. Immunizations No information available. Advance Directives There may be information available, but it has not been provided by the sender. Assessments There may be information available, but it has not been provided by the sender. Review of Systems There may be information available, but it has not been provided by the sender. Family History There may be information available, but it has not been provided by the sender. History of Past Illness There may be information available, but it has not been provided by the sender. History of Present Illness There may be information available, but it has not been provided by the sender.
--- OUTSIDE RECORDS SUMMARY | 2018-08-24 15:44 | XMS RPT_ITS ---
:1970 Author Organization [employer] Address [address] [place] [phone] Phone Care Team Providers Name Role Phone Ward Knowles MD Unavailable Reason for Visit Reason For Visit Description Start Date Follow-up by complaint Preliminary reason for visit data, not yet signed by the author as of left wrist pain Preliminary reason for visit data, not yet signed by the author as of Chief Complaint Chief Complaint Description Start Date left wrist pain Preliminary chief complaint data, not yet signed by the author as of Instructions Instruction Description Start Date Patient advised to follow-up with Primary Care Physician for BMI management. Plan of Care Type Date Detail Appointment 09:00 AM Ward Knowles MD, [facility] [place], [address], Appointment 09:00 AM Ward Knwoles MD, [address] [facility], [address], [place], [address], Appointment 08:15 AM Ward Knowles MD, [address] [facility], [address], [place], [address], Appointment 01:00 PM Ward Knowles MD, [address] [facility], [address], [place], [address], Medications Medication Instructions Start Stop Generic Name NDC Provider Date Date ROSUVASTATIN 1 tab daily / ROSUVASTATIN [id number] Ward Chapman CALCIUM 20 MG 13 CALCIUM Eleni LUNA TABS IBUPROFEN 800 takes 1 tablet / IBUPROFEN 86964233202 Eleonora Morataya MG TABS twice a day as 26 BIOFUELS PLANT MANAGER needed OMEPRAZOLE 40 takes 1 capsuel / OMEPRAZOLE 29439977765 Eleonora Morataya MG CPDR once a day as 26 BIOFUELS PLANT MANAGER needed PERCOCET takes 1 tablet / OXYCODONE-ACETA 68351911807 Eleonora Morataya 7.5-325 MG TABS every 12 hours 26 MINOPHEN BIOFUELS PLANT MANAGER as needed HYZAAR 100-25 takes 1 tablet / LOSARTAN 34220314145 Eleonora Morataya MG TABS once a day 26 POTASSIUM-HCTZ BIOFUELS PLANT MANAGER XANAX 1 MG TABS takes 1 tablet / ALPRAZOLAM 47680418510 Eleonora Morataya every 12 hours 26 BIOFUELS PLANT MANAGER as needed Conditions or Problems Problem Name Problem Onset Status Entry Provider Comment Standard Annotate Code Date Date Description Carpal tunnel G56.02 Active Ward A Carpal syndrome left (ICD-10-CM) / Eleni LUNA tunnel upper limb syndrome, left upper limb Mass of left 632947371 Active Ward A Mass of wrist (SNOMED CT) / Eleni LUNA wrist Cervical 52948828 Active Sourav Santiago Cervical nerve root (SNOMED CT) / Marlon LUNA nerve root impingement compression Allergies, Adverse Reactions, Alerts Allergy Name Reaction Start Date Severity Status Provider Description BENADRYL became paranoid Severe Active Sourav Mason (DIPHENHYDRAMINE HCL) CODEINE hives and itching Mild Active Sourav Mason PHOSPHATE Social History No information available. Vital Signs Date Name Value Unit Description BMI (Body Mass 26.31 kg/m2 Body Mass Index Index) [Ratio] Preliminary vital sign data, not yet signed by the author as of BP Diastolic 86 mm[Hg] blood pressure, diastolic Preliminary vital sign data, not yet signed by the author as of BP Systolic 135 mm[Hg] blood pressure, systolic Preliminary vital sign data, not yet signed by the author as of Heart Rate 83 /min pulse rate E&M Preliminary vital sign [...] Value Unit Range Flag Description Office Visit: Follow-up by lloyd, Rm: 4 MEDS REVIEW Done Documentation of current medications (procedure) Preliminary observation data, not yet signed by the author as of Preliminary observation data, not yet signed by the author as of EMG HX of the left upper EMG (electromyograph) extremity on history 10/28/2017 at [facility] Preliminary observation data, not yet signed by the author as of MRI HX of the left wrist MRI (magnetic on 11/05/2017 at [facility] imaging) history Preliminary observation data, not yet signed by the author as of Clinical Summary: HMSPatientID [facility] account number Procedures Code Procedure Name Date Entry Date G8730 Pain assessment documented as positive - follow-up documented G8427 Current medications documented 1036F Tobacco screening was negative - non user G8417 BMI documented as above normal parameters - follow-up documented G8783 Blood pressure within normal parameters - no follow-up required [facility]-[id number] Patient Encounter Medications Administered No information available. [...]
--- OUTSIDE RECORDS SUMMARY | 2018-08-24 15:44 | XMS RPT_ITS ---
:1970 Author Organization [employer] Address [address] [place] [phone] Phone Care Team Providers Name Role Phone Ward Knowles MD Unavailable Reason for Visit Reason For Visit Description Start Date New - 1st visit with practice Preliminary reason for visit data, not yet signed by the author as of left wrist mass Preliminary reason for visit data, not yet signed by the author as of Chief Complaint Chief Complaint Description Start Date left wrist mass Preliminary chief complaint data, not yet signed by the author as of Instructions Instruction Description Start Date Patient advised to follow-up with Primary Care Physician for BMI management. Plan of Care Type Date Detail Appointment 12:00 PM Ward Knowles MD, [address] [facility], [address], [place], [address], Pending order MRI left wrist with and without contrast Medications Medication Instructions Start Stop Generic Name NDC Provider Date Date IBUPROFEN 800 takes 1 tablet / IBUPROFEN 87626137446 Eleonora Morataya MG TABS twice a day as 26 CAMPAIGN WORKER needed OMEPRAZOLE 40 takes 1 capsuel / OMEPRAZOLE 99462879656 Eleonora Morataya MG CPDR once a day as 26 CAMPAIGN WORKER needed PERCOCET takes 1 tablet / OXYCODONE-ACET 07287209084 Eleonora Morataya 7.5-325 MG TABS every 12 hours 26 AMINOPHEN CAMPAIGN WORKER as needed SIMVASTATIN 20 takes 1 tablet / SIMVASTATIN 00525274317 Eleonora Morataya MG TABS once a day 26 CAMPAIGN WORKER HYZAAR 100-25 takes 1 tablet / LOSARTAN 05068547250 Eleonora Morataya MG TABS once a day 26 POTASSIUM-HCTZ CAMPAIGN WORKER XANAX 1 MG TABS takes 1 tablet / ALPRAZOLAM 75936005402 Eleonora Morataya every 12 hours 26 CAMPAIGN WORKER as needed Conditions or Problems Problem Name Problem Onset Status Entry Provider Comment Standard Annotate Code Date Date Description Carpal tunnel G56.02 Active Ward A Carpal syndrome left (ICD-10-CM) Eleni ULNA tunnel upper limb syndrome, left upper limb Mass of left 039311447 Active Ward A Mass of wrist (SNOMED CT) Eleni LUNA wrist Cervical 26593982 Active Sourav R Cervical nerve root (SNOMED CT) Marlon LUNA nerve root impingement compression Allergies, Adverse Reactions, Alerts Allergy Name Reaction Start Date Severity Status Provider Description BENADRYL became paranoid Severe Active Sourav R Marlon (DIPHENHYDRAMINE HCL) CODEINE hives and itching Mild Active Sourav R Marlon PHOSPHATE MD Social History No information available. Vital Signs Date Name Value Unit Description BMI (Body Mass 28.09 kg/m2 Body Mass Index Index) [Ratio] Preliminary vital sign data, not yet signed by the author as of BP Diastolic 70 mm[Hg] blood pressure, diastolic Preliminary vital sign data, not yet signed by the author as of BP Systolic 108 mm[Hg] blood pressure, systolic Preliminary vital sign data, not yet signed by the author as of Heart Rate 82 /min pulse rate E&M Preliminary vital sign data, not yet signed by the author as of Height 160 cm height in centimeters E&M Preliminary vital sign data, not yet signed by the author as of Height 63 [in_us] height E&M Preliminary vital sign data, not yet signed by the author as of Weight Measured 72 kg weight in kilograms E&M Preliminary vital sign data, not yet signed by the author as of Weight Measured 158 [lb_av] weight E&M Preliminary vital sign data, not yet signed by the author as of Results Date Name Value Unit Range Flag Description Office Visit: New - 1st visit with practice, Rm: MEDS REVIEW Done Documentation of current medications (procedure) Preliminary observation data, not yet signed by the author as of XRAY HX of the left wrist xray history on 10/14/2017 at [facility] Preliminary observation data, not yet signed by the author as of Preliminary observation data, not yet signed by the author as of Clinical Summary: Scanned ROS Summary ROS: Denies genitourinary review of systems, E&M ROS: GI Denies ROS gastrointestinal E&M ROS ENDO Denies endocrine ROS ROS MSK COMM Joint ROS Musculoskeletal Swelling,Muscle comments Weakness,Pain,J oint Pain ROS:MUSCSKEL Complains ROS musculoskeletal E&M ROS: PSYCH Denies ROS psychiatric E&M ROS HEME Denies ROS hematologic/lymphatic E&M ROS SKIN Denies ROS skin E&M ROS ENT Denies ROS ENT E&M ROS:GENERAL Denies ROS general E&M ROS_NEUR_COM Numbness,Tingli Review of Systems ng Neurologic comment ROS: NEURO Complains ROS neurological E&M ROS:PULMON Denies ROS pulmonary E&M ROS: CARDIAC Denies ROS cardiovascular E&M Clinical Summary: HMSPatientID [facility] account number Procedures Code Procedure Name Date Entry Date G8730 Pain assessment documented as positive - follow-up documented G8427 Current medications documented 1036F Tobacco screening was negative - non user G8417 BMI documented as above normal parameters - follow-up documented G8783 Blood pressure within normal parameters - no follow-up required [facility]-[id number] Patient Encounter Medications Administered No information available. [...]
--- OUTSIDE RECORDS SUMMARY | 2018-08-24 15:45 | XMS RPT_ITS ---
:1970 Author Organization OHIP Support Name Relationship Address Phone JAMESLEONARDOY Unavailable [address] + [place] [address] UE Unavailable Unavailable Unavailable ANA MARIA RAMIREZ Unavailable [address] + [place] [address] UE Unavailable Unavailable Unavailable ANA MARIA RAMIREZ Unavailable [address] + [place] [address] UE Unavailable Unavailable Unavailable ANA MARIA RAMIREZ Unavailable [address] + [place] [address] UE Unavailable Unavailable Unavailable ANA MARIA RAMIREZ Unavailable [address] + [place] [address] UE Unavailable Unavailable Unavailable ANA MARIA RAMIREZ Unavailable [address] + [place] [address] UE Unavailable Unavailable Unavailable ANA MARIA RAMIREZ Unavailable [address] + [place] [address] UE Unavailable Unavailable Unavailable ANA MARIA RAMIREZ Unavailable [address] + [place] [address] UE Unavailable Unavailable Unavailable ANA MARIA RAMIREZ Unavailable [address] + [place] [address] UE Unavailable Unavailable Unavailable ANA MARIA RAMIREZ Unavailable [address] + [place] [address] UE Unavailable Unavailable Unavailable ANA MARIA RAMIREZ Unavailable [address] + [place] [address] UE Unavailable Unavailable Unavailable ANA MARIA RAMIREZ Unavailable [address] + [place] [address] UE Unavailable Unavailable Unavailable ANA MARIA RAMIREZ Unavailable [address] + [place] [address] UE Unavailable Unavailable Unavailable ANA MARIA RAMIREZ Unavailable [address] + [place] [address] UE Unavailable Unavailable Unavailable JAMES ANA MARIA Unavailable [address] + [place] [address] UE Unavailable Unavailable Unavailable JAMES, ANA MARIA Unavailable [address] + [place] [address] UE Unavailable Unavailable Unavailable Care Team Providers Name Role Phone CB THOMAS Attending Unavailable GEORGE CHUN Attending Unavailable Julio Cesar Kimbrough Attending Unavailable Luis E, Julio Cesar Referring Unavailable RAMIREZ HUTCHINSON Primary Care Unavailable RAMIREZ HUTCHINSON Attending Unavailable RAMIREZ HUTCHINSON Referring Unavailable RAMIREZ HUTCHINSON Primary Care Unavailable RAMIREZ HUTCHINSON Primary Care Unavailable White, Vidhya Admitting Unavailable KitLex pierce Attending Unavailable White, Vidhya Admitting Unavailable White, Vidhya Attending Unavailable RAMIREZ HUTCHINSON Primary Care Unavailable White, Vidhya Consulting Unavailable White, Vidhya Admitting Unavailable Lex Bhatti Attending Unavailable RAMIREZ HUTCHINSON Primary Care Unavailable Lex Bhatti Consulting Unavailable Tylor Walker Attending Unavailable DOCTOR, OUT OF TOWN Referring Unavailable RAMIREZ HUTCHINSON Primary Care Unavailable Tylor Walker Attending Unavailable Tylor Walker Referring Unavailable RAMIREZ HUTCHINSON Primary Care Unavailable Negro Isidro Attending Unavailable Negro Isidro Referring Unavailable RAMIREZ HUTCHINSON Primary Care Unavailable Lex Bhatti Attending Unavailable Tylor Walker Attending Unavailable Tylor Walker Referring Unavailable RAMIREZ HUTCHINSON Primary Care Unavailable Tylor Walker Attending Unavailable Aaron, Tylor Referring Unavailable Juan Carlos Haynesril Attending Unavailable White, Vidhya Referring Unavailable Lucie Warner Attending Unavailable DOCTOR, OUT OF TOWN Referring Unavailable Tylor Walker Attending Unavailable Aaron, Tylor Referring Unavailable AaronTylor crandall Attending Unavailable DOCTOR, OUT OF TOWN Referring Unavailable AaronTylor crandall Attending Unavailable DOCTOR, OUT OF TOWN Referring Unavailable ANNMARIE MCINTOSH Attending Unavailable ELENA SOTO ([facility]) Attending Unavailable PROBLEMS PROBLEMS DATE TYPE CONDITION / CODE ATTENDING STATUS SOURCE 05/20/2018 Active Hypokalemia / GEORGE CHUN Active [facility] E87.6(ICD-10) [facility] Other [facility] Repository 05/20/2018 Active Dizziness and GEORGE CHUN Active [facility] giddiness / [facility] Other [facility] R42(ICD-10) Repository 01/17/2018 Active Contusion of CB THOMAS Active [facility] unspecified LEX Other [facility] forearm, initial Repository encounter / S50.10XA(ICD-10) 01/13/2018 Unknown R06.02 - Shortness Warner, Active [facility] / [facility] R06.02(ICD-10) Hospital Repository 01/29/2018 Unknown J44.9 - Chronic AaronTylor crandall Active [facility] obstructive [facility] pulmonary disease, Hospital unspecified / Repository J44.9(ICD-10) 12/18/2017 Unknown Z72.0 - Tobacco AaronTylor crandall Active [facility] use / [facility] Z72.0(ICD-10) Hospital Repository 12/18/2017 Unknown J42 - Unspecified Aaron, Tylor Active [facility] chronic bronchitis [facility] / J42(ICD-10) Hospital Repository 01/10/2018 Unknown R07.9 - Chest Dallas, Levi Active [facility] pain, unspecified [facility] / R07.9(ICD-10) Hospital Repository 01/10/2018 Unknown R07.89 - Other Dallas, Carver Active [facility] chest pain / [facility] R07.89(ICD-10) Hospital Repository 01/10/2018 Unknown I10 - Essential Dallas, Carver Active [facility] (primary) [facility] hypertension / Hospital I10(ICD-10) Repository 10/28/2017 Unknown R20.8 - Other Julio Cesar Kimbrough Active [facility] skin sensation / Hospital R20.8(ICD-10) Repository 10/28/2017 Unknown M25.532 - Pain in Julio Cesar Kimbrough Active [facility] left wrist / [facility] M25.532(ICD-10) Hospital Repository PROCEDURES PROCEDURES No Procedure Records FoundRESULTS RESULTS NURSING PROG Observed: 08/17/2018 Status: COMPLETED Source: [place] 3:06 PM [facility] REPOSITORY HNO ID: [id number] Author: Staci (Rn) IVAN Reynolds Service: Nursing Author Type: Registered Nurse Type: Nursing Progress Note Filed: 08/17/2018 3:12 PM Note Text: Pre call complete. Advised patient to contact Dr. Harris's office regarding prep instructions. I also advised patient that we will check with an anesthesiologist to see if she needs cardiac clearance prior to her procedure. CNOV Observed: 08/11/2018 Status: COMPLETED Source: [place] 1:45 PM [facility] REPOSITORY Office Visit ([place]) NANCIE RAMIREZ ([id number]) 1970 F CHT Date Time Provider Department 08/11/18 1:45 PM ELENA JERNIGAN (ALEXA) WIL During your visit today, we recorded the following information about you: Pulse Blood pressure Weight Height 84/minute 132/70 78 kg 1.6 m Elena Jernigan APRN.TOOLS ADMINISTRATOR 08/11/2018 2:09 PM Signed DEPARTMENT OF GASTROENTEROLOGY - NEW PATIENT/CONSULT REASON FOR VISIT Nancie Ramirez is a 48 year old female who is self referred for GERD. HISTORY OF PRESENT ILLNESS Nancie Ramirez is a 48 year old female who presents today for an evaluation of GERD. GI symptoms present for the last months. Pain in the epigastric region for the last 2 weeks. Worsens after eating. Pain in the back. Nausea- frequent. Vomits in the middle of the night. No hematemesis. Heartburn/reflux- severe. Refractory to her 40mg omeprazole. Has been on this for years intermittently. Resumed about 6 months ago. BMs- semi-formed. Mucous. 1 bm daily. No very watery stools. She states that a she had colitis on a CT several years ago. Had diarrhea at that time. She was told that this was from antibiotics. She never had a colonoscopy. She was supposed to. She has had diarrhea for many years intermittently. Anxiety Hysterectomy Htn 30mg Prevacid, oxycodone, xanax, motrin Oxycodone- takes this daily. She tells me that this does not cause GI emptying delays or nausea. Does not believe that this is possible. For back pain. Motrin- takes this a few times monthly Xanax is daily Wt is stable, up Quite smoking 7 months ago No MJ use PAST MEDICAL HISTORY Diagnosis Date - Abnormal chest sounds - Anxiety - Aortic regurgitation 2+ per echo 04/2014 - Chest pain - Chronic SI joint pain - Cigarette smoker quit in 2017 - GERD (gastroesophageal reflux disease) - High cholesterol - HTN (hypertension) - Low grade squamous intraepithelial lesion (LGSIL) on cervical Pap smear 08/31/2015 HPV pos - Palpitation - Tobacco use quit in 2018 PAST SURGICAL HISTORY Procedure Laterality Date - CARDIAC CATH - CARPAL TUNNEL bilat hands x2 - ELBOW SURGERY HX 2008 rerouted ulnar nerve-bilat elbow - HYSTERECTOMY HX 12/2015 total robotic with LSO - INJECTION PROCEDURE FOR SACROILIAC 05/09/2010 BLOCK SACROILIAC WITH C-ARM performed by SHEA MANE at [facility] - KNEE SURGERY HX 2013,2012 - TRIGGER POINT INJECTION MULTI 1-2 MUSCLE GR 05/09/2010 INJECTION TRIGGER POINT ONE OR TWO MUSCLES performed by SHEA MANE at [facility] - TUBAL LIGATION HX 1989 Current Outpatient Prescriptions: oxyCODONE-acetaminophen (PERCOCET) 5-325 mg tablet Take 1 tablet by mouth every 6 hours as needed. Disp: Rfl: rosuvastatin (CRESTOR) 20 mg tablet Take 1 tablet by mouth once daily. Disp: 30 tablet Rfl: 0 ibuprofen (MOTRIN) 800 mg tablet Take 1 tablet by mouth every 8 hours as needed for Pain. Disp: 28 tablet Rfl: 0 simethicone, chewable (MYLICON) 80 mg chewable tablet Take 1 tablet by mouth every 6 hours as needed. (Patient not taking: Reported on 07/14/2018 ) Disp: 30 tablet Rfl: 0 aspirin 81 mg chewable tablet Take 81 mg by mouth once daily. Disp: Rfl: Aspirin, Buffered 81 mg tab Take by mouth once daily. Disp: Rfl: ALPRAZolam (XANAX) 0.5 mg tablet Take 0.5 mg by mouth at bedtime as needed. Disp: Rfl: lansoprazole (PREVACID) 30 mg ORAL capsule Take 30 mg by mouth once daily. Disp: Rfl: losartan/hydrochlorothiazide(HYZAAR 100 MG-25 MG TAB) Take one(1) tablet daily. Disp: Rfl: 0 No current facility-administered medications for this visit. ALLERGIES Allergen Reactions - Codeine Itching Social History Marital status: Spouse name: Years of education: Number of children: Social History Main Topics Smoking status: Former Smoker Packs/day: 0.50 Years: 25.00 Types: Cigarettes Smokeless tobacco: Never Used Alcohol use: Yes Comment: occasionally Drug use: No Sexual activity: Yes Partners with: Male control/protection: Tubal Ligation Family History Problem Relation Age of Onset - Stroke Mother - Hypertension Mother - Stroke Father - Hypertension Father Aneursym REVIEW OF SYSTEMS EyesNegative for vision changes, diplopia or epiphora. Ears, Mouth, nose, throat:No problems Cardiovascular: No Problems Respiratory: +SOB at times, coughing spells. Cannot expel air well Gastrointestinal : See above Genitourinary: Negative Musuloskeletal: Denies significant problems Integumentary: no rashes, lesions, or jaundice Neurological: No history of neurologic problems Endocrine: Negative for cold or heat intolerance, polyuria, polydipsia and goiter. Psychiatric: H/o anxiety Allergic/ Immunologic: Negative PHYSICAL EXAMINATION BP 132/70 Pulse 84 Ht 5' 3 (1.60m) Wt 172 lb (78.0kg) LMP 12/16/2015 BMI 30.48 kg/(m2). General Appearance: Well appearing, alert, in no acute distress, well-hydrated, well nourished. Eyes: PERRLA, conjunctiva and sclera normal Oropharynx: Lips, tongue, and oral mucosa normal. There is no thrush or oral ulcers. Neck: normal thyroid, no LAD Lungs:breath sounds clear to auscultation bilaterally, no crackles, rhonchi, or wheezes Heart: regular rate and rhythm, no murmurs or gallops. Abdomen: not distended, normal bowel sounds, soft and depressible, no guarding or rebound, no palpable mass, no organomegaly. Diffusely tender in all quadrants to light palpation. More so in the epigastric region. Questionably positive Lozano's sign. Rectal exam: Deferred. Extremities: no cyanosis or edema Skin: no jaundice, no spider angiomas, no palmar erythema Neuro/Psych:alert, oriented x 3. Anxious, possibly manic affect Assessment IMPRESSION Ms. Ramirez is a 48 year old year old female with a h/o anxiety on daily Xanax, htn, hysterectomy, and chronic back pain on daily oxycodone who presents with acute on chronic diarrhea as well as new onset severe epigastric pain n/v, and heartburn. She reports a h/o colitis on past CT scan from overusing antibiotics. She is currently failing 40mg omeprazole and has been on this for the last 6 months. She denies frequent NSAID use, tobacco (quit last year), and marijuana use. Wt is stable. Will arrange an EGD and colonoscopy with biopsies to evaluate for PUD, esophagitis, and colitis. Will check a RUQ u/s for cholecystitis. Will order infectious stool studies. Lastly, can check for gastroparesis with a GES. Will start her on daily Carafate and increase her PPI to BID in the interim given the symptom severity. PLAN -EGD, Colonoscopy MAC, gastric/esoph/colon bx -RUQ u/s -GES -C diff, Cx, O+P, CBC, lipase -Increase to BID PPI -Add Carafate QID -Pt to see PCP for pulmonary symptoms. States understanding. Elena Jernigan APRN.ALEXA August 11, 2018 1:02 PM Elena Jernigan APRN.CNP 08/11/2018 1:47 PM Signed GENERAL ANESTHESIA How to Prepare for Your Colonoscopy Using Golytely, Nulytely, Trilyte, or Colyte Preparations IMPORTANT - Please Read These Instructions at Least 2 Weeks Before Your Colonoscopy Box Instructions: Your bowel must be empty so that your doctor can clearly view your colon. Follow all of the instructions in this handout EXACTLY as they are written. If you do NOT follow the directions for when to start drinking the bowel preparation (see next page), your colonoscopy WILL be cancelled. ? Do NOT eat any solid food the ENTIRE day before your colonoscopy. ? Buy your bowel preparation at least 5 days before your colonoscopy. ? Do NOT mix the solution until the day before your colonoscopy. Designated Hard Metals Hand Engraver on the Day of Your Exam A responsible family member or friend MUST come with you to your colonoscopy and REMAIN in the endoscopy area until you are discharged! You are NOT ALLOWED to drive, take a taxi or bus, or leave the Endoscopy Center ALONE. If you do not have a responsible armored car driver (family member or friend) with you to take you home, your exam can not be done with sedation and will be cancelled. Medications Some of the medicines you take may need to be stopped or adjusted before your colonoscopy. You MUST call the doctor who ordered any of the following medicines at least 2 weeks before your colonoscopy. ? Blood Thinners -- such as Coumadin? (warfarin), Plavix ? (clopidogrel), Ticlid ? (ticlopidine hydrochloride), Agrylin ? (anagrelide), Xarelto (rivaroxaban), Pradaxa (dabigatran), and Effient (Prasugrel). ? Insulin or diabetes pills. Please call the doctor that monitors your glucose levels. Your insulin dosage may need to be adjusted due to diet restrictions required with this bowel preparation. (Please bring your diabetes medications with you on the day of your procedure.) If you take aspirin, continue it and ALL other medications prescribed by your doctor. On the day of your colonoscopy, take your medications with a sip of water. Five (5) Days Before Your Colonoscopy Do NOT take medications that stop diarrhea-- such as Imodium?, Kaopectate?, or Pepto Bismol?. Do NOT take fiber supplements--such as Metamucil?, Citrucel?, or Perdiem?. Do NOT take products that contain iron--such as multi-vitamins--(the label lists what is in the products). Do NOT take vitamin E. Buy the prescription bowel preparation at your local pharmacy or drugstore. Three (3) Days Before Your Colonoscopy Do NOT eat high-fiber foods--such as popcorn, beans, seeds (flax, sunflower, quinoa), multigrain bread, nuts, salad/vegetables, or fresh and dried fruit. One (1) Day Before Your Colonoscopy Only drink clear liquids the ENTIRE DAY before your colonoscopy. Do NOT eat any solid foods. Drink at least 8 ounces of clear liquids every hour after waking up. The clear liquids you can drink include: ? water, apple or white grape juice; broth; coffee or tea (without milk or creamer); clear carbonated beverages such as cade baldemar or lemon-salamatof soda; Gatorade? or other sports drinks (not red); Clark-Aid? or other flavored drinks (not red); plain jello or other gelatins (not red); popsicles (not red) ? Do NOT drink alcohol on the day before or the day of the procedure. When to Mix and Drink Your Bowel Preparation Follow the instructions on the label. After mixing, place the solution in the refrigerator for a couple of hours before drinking. You may add the flavor packet that came with the bowel preparation. DO NOT add ice, sugar or any flavorings to the solution. Evening before Colonoscopy Start drinking the bowel preparation at 6 PM the evening before your colonoscopy. Drink an 8 oz glass of bowel preparation every 10 minutes. You must finish drinking the solution by 9 PM the night before your scheduled procedure. You may continue to drink clear liquids only until midnight. Do NOT eat or drink ANYTHING after midnight the night before your procedure, or your procedure may be cancelled. This is for your safety and will reduce the risk of having any food or liquid in your stomach move into your lungs (aspiration) during a procedure. If you take aspirin, take it and ALL other prescribed medicines with a sip of water on the day of your colonoscopy. Contact Information If you are unable to keep your appointment or have any questions about the instructions, please call the facility where the procedure is being performed. Call between the hours of 8:00 AM and 5:00 PM. If you are calling after 5:00 PM, please call Nurse trade union official at [phone]. COLONOSCOPY PROCEDURE OVERVIEW Please read prior to the procedure What is a Colonoscopy? A colonoscopy is an outpatient procedure in which the inside of the large intestine (colon and rectum) is examined. A colonoscopy is commonly used to evaluate gastrointestinal symptoms, such as rectal and intestinal bleeding, abdominal pain, or changes in bowel habits. Colonoscopies are also performed in individuals without symptoms to check for colorectal polyps or cancer. A screening colonoscopy is recommended for anyone 50 years of age and older, and for anyone with parents, siblings or children with a history of colorectal cancer or polyps. What happens before a colonoscopy? To have a successful colonoscopy, your bowel must be empty so that your physician can clearly view the colon. To do this, it is very important to read and follow all of the instructions given to you at least 2 weeks BEFORE your exam. If your bowel is not empty, your colonoscopy will not be successful and may have to be repeated. If you feel nauseated or vomit while taking the bowel preparation, wait 30 minutes before drinking more fluid and start with small sips of solution. Some activity (such as walking) or a few soda crackers may help decrease the nausea you are feeling. If the nausea persists, please contact nurse yardage control clerk at [phone]. You may experience skin irritation around the anus due to the passage of liquid stools. To prevent and treat skin irritation, you should: Apply Vaseline or Desitin ointment to the skin around the anus before drinking the bowel preparation medications. These products can be purchased at any drug store. Wipe the skin after each bowel movement with disposable wet wipes instead of toilet paper. These are found in the toilet paper area of the store. Sit in a bathtub filled with warm water for 10 to 15 minutes after you finish passing a stool; after soaking, blot the skin dry with a soft cloth, apply Vaseline or Desitin ointment to the anal area, and place a cotton ball just outside your anus to absorb leaking fluid. What happens during a colonoscopy? During a colonoscopy, an experienced physician uses a colonoscope (a long, flexible instrument about 1/2 inch in diameter) to view the lining of the colon. The colonoscope is inserted into the rectum and advanced through the large intestine. If necessary during a colonoscopy, small amounts of tissue can be removed for analysis (a biopsy) and polyps can be identified and entirely removed. In many cases, a colonoscopy allows accurate diagnosis and treatment of colorectal problems without the need for a major operation. You are asked to wear a hospital gown and an IV will be started. You are given a pain reliever and a sedative intravenously (in your vein). You will feel relaxed and somewhat drowsy. You will lie on your left side, with your knees drawn up towards your chest. A small amount of air is used to expand the colon so the physician can see the colon bello. You may feel mild cramping during the procedure. Cramping can be reduced by taking slow, deep breaths. The colonoscope is slowly withdrawn while the lining of your bowel is carefully examined. The procedure lasts from 30 minutes to 1 hour. What happens after a colonoscopy? You will stay in a recovery room for observation until you are ready for discharge. You may feel some cramping or a sensation of having gas, but this quickly passes. If sedation has been given, a responsible armored car driver (a family member or friend) must drive you home. Avoid alcohol, driving, and operating machinery for 24 hours following the procedure. Unless otherwise instructed, you may immediately return to your normal diet. We recommend you wait until the day after your procedure to resume normal activities. If polyps were removed or a biopsy was taken, the physician performing your colonoscopy will tell you when it is safe to resume taking your blood thinners. If a biopsy was taken or a polyp was removed, you may notice a little amount of rectal bleeding for 1 to 2 days after the procedure. If you have a large amount of rectal bleeding, high or persistent fevers, or severe abdominal pain within the next 2 weeks, please go to your local emergency room and call the physician who performed your exam. Referring Provider: SELF [[id number]] Allergies As of Date: 08/11/2018 Noted Allergy Reaction DIPHENHYDRAMINE HCL 03/26/2016 16 - Unknown MORPHINE SULFATE 11/25/2017 16 - Unknown CODEINE 09/04/2006 9 - Itching GABAPENTIN 12/03/2017 7 - Swelling Date Reviewed: 08/11/2018 Reviewed by: Brianna Panda - Fully Assessed Reason for Visit: acid reflux [Other] Primary Visit Diagnosis:Epigastric pain [R10.13] Other Visit Diagnoses:Intractable vomiting with nausea, unspecified vomiting type [R11.2] History of colitis [Z87.19] Diarrhea, unspecified type [R19.7] Nausea [R11.0] Order(s):PT ED DIGESTIVE DISEASE [21301016] Order #: [id number]: 1 peg 3350-Electrolytes (GOLYTELY) 236-22.74-6.74 - 5.86 gram suspensionTake 4,000 mL by mouth one time only for 1 dose. Refer to printed prep instructions from your doctor.Disp: 1 BottleRfl: 0 PT ED DIGESTIVE DISEASE [21301016] Order #: [id number]. #:[id number]: 1 EGD GEN ANES [0500912] Order #: [id number] FUTURE COLONOSCOPY GEN ANES [7827517] Order #: [id number] FUTURE US ABD RT UPPER QUADRANT [6424846] Order #: [id number] FUTURE C. DIFFICILE PCR [SQCDPCR] Order #: [id number] FUTURE OVA + PARA MICROSCOPIC [SQOVAP] Order #: [id number] FUTURE ENTERIC BACTERIAL PANEL BY PCR [SQSTLPCR] Order #: [id number] FUTURE Omeprazole 40 mg capsuleTake 1 capsule by mouth twice daily.Disp: 60 capsuleRfl: 3 sucralfate (CARAFATE) 100 mg/mL suspensionTake 10 mL by mouth before meals and at bedtime.Disp: 560 mLRfl: 1 NM GASTRIC EMPTYING SOLID [5010172] Order #: [id number] FUTURE LIPASE BLD [SQLIPA] Order #: [id number] FUTURE CBC [SQCBC] Order #: [id number] FUTURE Prescriptions as of 08/11/2018 Sig: OXYCODONE-ACETAMINOPHEN 5 MG-* Take 1 tablet by mouth every * ROSUVASTATIN 20 MG TABLET Take 1 tablet by mouth once d* IBUPROFEN 800 MG TABLET Take 1 tablet by mouth every * ALPRAZOLAM 0.5 MG TABLET Take 0.5 mg by mouth at bedti* * HYZAAR 100 MG-25 MG TABLET Take one(1) tablet daily. ALBUTEROL SULFATE INHALATION albuterol sulfate inhalation TOPIRAMATE 100 MG TABLET TAKE 1 TABLET BY AT BEDTIME PEG 3350-ELECTROLYTES 236 GRA* Take 4,000 mL by mouth one ti* OMEPRAZOLE 40 MG CAPSULE,HUI* Take 1 capsule by mouth twice* SUCRALFATE 100 MG/ML ORAL MONCHO* Take 10 mL by mouth before me* SIMETHICONE 80 MG CHEWABLE TA* Take 1 tablet by mouth every * Patient not taking: Reported on 07/14/2018 ASPIRIN 81 MG CHEWABLE TABLET Take 81 mg by mouth once audrey* ASPIRIN, BUFFERED 81 MG TABLET Take by mouth once daily. 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] INVALID FOR* Sciatica [M54.30] INVALID FOR* Degeneration of Lumbar or Lumbosacral Intervert*INVALID FOR* Sacroiliac Inflammation [M46.1] INVALID FOR* Piriformis Syndrome [G57.00] INVALID FOR* Essential hypertension with goal blood pressure*INVALID FOR* GERD (gastroesophageal reflux disease) [K21.9] INVALID FOR* Tobacco abuse [Z72.0] INVALID FOR* Aortic regurgitation [I35.1] INVALID FOR* Anxiety neurosis [F41.1] INVALID FOR* Dyspnea [R06.00] INVALID FOR* Cigarette nicotine dependence without complicat*INVALID FOR* Hyperglycemia [R73.9] INVALID FOR* HTN (hypertension) [I10] High cholesterol [E78.00] Cigarette smoker [F17.210] Chest pain [R07.9] Palpitation [R00.2] Other instructions from your clinician: GENERAL ANESTHESIA How to Prepare for Your Colonoscopy Using Golytely, Nulytely, Trilyte, or Colyte Preparations IMPORTANT - Please Read These Instructions at Least 2 Weeks Before Your Colonoscopy Box Instructions: Your bowel must be empty so that your doctor can clearly view your colon. Follow all of the instructions in this handout EXACTLY as they are written. If you do NOT follow the directions for when to start drinking the bowel preparation (see next page), your colonoscopy WILL be cancelled. ? Do NOT eat any solid food the ENTIRE day before your colonoscopy. ? Buy your bowel preparation at least 5 days before your colonoscopy. ? Do NOT mix the solution until the day before your colonoscopy. Designated Hard Metals Hand Engraver on the Day of Your Exam A responsible family member or friend MUST come with you to your colonoscopy and REMAIN in the endoscopy area until you are discharged! You are NOT ALLOWED to drive, take a taxi or bus, or leave the Endoscopy Center ALONE. If you do not have a responsible armored car driver (family member or friend) with you to take you home, your exam can not be done with sedation and will be cancelled. Medications Some of the medicines you take may need to be stopped or adjusted before your colonoscopy. You MUST call the doctor who ordered any of the following medicines at least 2 weeks before your colonoscopy. ? Blood Thinners -- such as Coumadin? (warfarin), Plavix ? (clopidogrel), Ticlid ? (ticlopidine hydrochloride), Agrylin ? (anagrelide), Xarelto (rivaroxaban), Pradaxa (dabigatran), and Effient (Prasugrel). ? Insulin or diabetes pills. Please call the doctor that monitors your glucose levels. Your insulin dosage may need to be adjusted due to diet restrictions required with this bowel preparation. (Please bring your diabetes medications with you on the day of your procedure.) If you take aspirin, continue it and ALL other medications prescribed by your doctor. On the day of your colonoscopy, take your medications with a sip of water. Five (5) Days Before Your Colonoscopy Do NOT take medications that stop diarrhea-- such as Imodium?, Kaopectate?, or Pepto Bismol?. Do NOT take fiber supplements--such as Metamucil?, Citrucel?, or Perdiem?. Do NOT take products that contain iron--such as multi-vitamins--(the label lists what is in the products). Do NOT take vitamin E. Buy the prescription bowel preparation at your local pharmacy or drugstore. Three (3) Days Before Your Colonoscopy Do NOT eat high-fiber foods--such as popcorn, beans, seeds (flax, sunflower, quinoa), multigrain bread, nuts, salad/vegetables, or fresh and dried fruit. One (1) Day Before Your Colonoscopy Only drink clear liquids the ENTIRE DAY before your colonoscopy. Do NOT eat any solid foods. Drink at least 8 ounces of clear liquids every hour after waking up. The clear liquids you can drink include: ? water, apple or white grape juice; broth; coffee or tea (without milk or creamer); clear carbonated beverages such as cade baldemar or lemon-salamatof soda; Gatorade? or other sports drinks (not red); Clark- Aid? or other flavored drinks (not red); plain jello or other gelatins (not red); popsicles (not red) ? Do NOT drink alcohol on the day before or the day of the procedure. When to Mix and Drink Your Bowel Preparation Follow the instructions on the label. After mixing, place the solution in the refrigerator for a couple of hours before drinking. You may add the flavor packet that came with the bowel preparation. DO NOT add ice, sugar or any flavorings to the solution. Evening before Colonoscopy Start drinking the bowel preparation at 6 PM the evening before your colonoscopy. Drink an 8 oz glass of bowel preparation every 10 minutes. You must finish drinking the solution by 9 PM the night before your scheduled procedure. You may continue to drink clear liquids only until midnight. Do NOT eat or drink ANYTHING after midnight the night before your procedure, or your procedure may be cancelled. This is for your safety and will reduce the risk of having any food or liquid in your stomach move into your lungs (aspiration) during a procedure. If you take aspirin, take it and ALL other prescribed medicines with a sip of water on the day of your colonoscopy. Contact Information If you are unable to keep your appointment or have any questions about the instructions, please call the facility where the procedure is being performed. Call between the hours of 8:00 AM and 5:00 PM. If you are calling after 5:00 PM, please call Nurse trade union official at [phone]. COLONOSCOPY PROCEDURE OVERVIEW Please read prior to the procedure What is a Colonoscopy? A colonoscopy is an outpatient procedure in which the inside of the large intestine (colon and rectum) is examined. A colonoscopy is commonly used to evaluate gastrointestinal symptoms, such as rectal and intestinal bleeding, abdominal pain, or changes in bowel habits. Colonoscopies are also performed in individuals without symptoms to check for colorectal polyps or cancer. A screening colonoscopy is recommended for anyone 50 years of age and older, and for anyone with parents, siblings or children with a history of colorectal cancer or polyps. What happens before a colonoscopy? To have a successful colonoscopy, your bowel must be empty so that your physician can clearly view the colon. To do this, it is very important to read and follow all of the instructions given to you at least 2 weeks BEFORE your exam. If your bowel is not empty, your colonoscopy will not be successful and may have to be repeated. If you feel nauseated or vomit while taking the bowel preparation, wait 30 minutes before drinking more fluid and start with small sips of solution. Some activity (such as walking) or a few soda crackers may help decrease the nausea you are feeling. If the nausea persists, please contact nurse yardage control clerk at [phone]. You may experience skin irritation around the anus due to the passage of liquid stools. To prevent and treat skin irritation, you should: Apply Vaseline or Desitin ointment to the skin around the anus before drinking the bowel preparation medications. These products can be purchased at any drug store. Wipe the skin after each bowel movement with disposable wet wipes instead of toilet paper. These are found in the toilet paper area of the store. Sit in a bathtub filled with warm water for 10 to 15 minutes after you finish passing a stool; after soaking, blot the skin dry with a soft cloth, apply Vaseline or Desitin ointment to the anal area, and place a cotton ball just outside your anus to absorb leaking fluid. What happens during a colonoscopy? During a colonoscopy, an experienced physician uses a colonoscope (a long, flexible instrument about 1/2 inch in diameter) to view the lining of the colon. The colonoscope is inserted into the rectum and advanced through the large intestine. If necessary during a colonoscopy, small amounts of tissue can be removed for analysis (a biopsy) and polyps can be identified and entirely removed. In many cases, a colonoscopy allows accurate diagnosis and treatment of colorectal problems without the need for a major operation. You are asked to wear a hospital gown and an IV will be started. You are given a pain reliever and a sedative intravenously (in your vein). You will feel relaxed and somewhat drowsy. You will lie on your left side, with your knees drawn up towards your chest. A small amount of air is used to expand the colon so the physician can see the colon bello. You may feel mild cramping during the procedure. Cramping can be reduced by taking slow, deep breaths. The colonoscope is slowly withdrawn while the lining of your bowel is carefully examined. The procedure lasts from 30 minutes to 1 hour. What happens after a colonoscopy? You will stay in a recovery room for observation until you are ready for discharge. You may feel some cramping or a sensation of having gas, but this quickly passes. If sedation has been given, a responsible armored car driver (a family member or friend) must drive you home. Avoid alcohol, driving, and operating machinery for 24 hours following the procedure. Unless otherwise instructed, you may immediately return to your normal diet. We recommend you wait until the day after your procedure to resume normal activities. If polyps were removed or a biopsy was taken, the physician performing your colonoscopy will tell you when it is safe to resume taking your blood thinners. If a biopsy was taken or a polyp was removed, you may notice a little amount of rectal bleeding for 1 to 2 days after the procedure. If you have a large amount of rectal bleeding, high or persistent fevers, or severe abdominal pain within the next 2 weeks, please go to your local emergency room and call the physician who performed your exam. Prescriptions ordered this encounter Disp Refills Start End PEG 3350-ELECTROLYTES 236 GRAM-22.74* 1 Tong* 0 08/11/2018 08/11/2018 Route: ORAL Sig: Take 4,000 mL by mouth one time only for 1 dose. Refer to printed prep instructions from your doctor. OMEPRAZOLE 40 MG CAPSULE,DELAYED REL* 60 c* 3 08/11/2018 Route: ORAL Sig: Take 1 capsule by mouth twice daily. SUCRALFATE 100 MG/ML ORAL SUSPENSION 560 * 1 08/11/2018 Route: ORAL Sig: Take 10 mL by mouth before meals and at bedtime. Medications Discontinued During This Encounter lansoprazole (PREVACID) 30 mg ORAL c* 08/11/2018 Class: Med Update Route: ORAL Sig: Take 30 mg by mouth once daily. Disc: Other Omeprazole 40 mg capsule 08/11/2018 Class: Historical Med Route: ORAL Sig: Take 40 mg by mouth once daily. Disc: Reason for discontinue is not on file. Encounter Status:Closed by ELENA JERNIGAN CNP on 08/11/18 PROGRESS Observed: 08/11/2018 Status: COMPLETED Source: [place] 1:02 PM [facility] REPOSITORY HNO ID: [id number] Author: Elena Christine (Alexa) Joyce Service: (none) Author Type: Nurse Practitioner Type: Progress Notes Filed: 08/11/2018 2:09 PM Note Text: DEPARTMENT OF GASTROENTEROLOGY - NEW PATIENT/CONSULT REASON FOR VISIT Nancie Ramirez is a 48 year old female who is self referred for GERD. HISTORY OF PRESENT ILLNESS Nancie Ramirez is a 48 year old female who presents today for an evaluation of GERD. GI symptoms present for the last months. Pain in the epigastric region for the last 2 weeks. Worsens after eating. Pain in the back. Nausea- frequent. Vomits in the middle of the night. No hematemesis. Heartburn/reflux- severe. Refractory to her 40mg omeprazole. Has been on this for years intermittently. Resumed about 6 months ago. BMs- semi-formed. Mucous. 1 bm daily. No very watery stools. She states that a she had colitis on a CT several years ago. Had diarrhea at that time. She was told that this was from antibiotics. She never had a colonoscopy. She was supposed to. She has had diarrhea for many years intermittently. Anxiety Hysterectomy Htn 30mg Prevacid, oxycodone, xanax, motrin Oxycodone- takes this daily. She tells me that this does not cause GI emptying delays or nausea. Does not believe that this is possible. For back pain. Motrin- takes this a few times monthly Xanax is daily Wt is stable, up Quite smoking 7 months ago No MJ use PAST MEDICAL HISTORY Diagnosis Date - Abnormal chest sounds - Anxiety - Aortic regurgitation 2+ per echo 04/2014 - Chest pain - Chronic SI joint pain - Cigarette smoker quit in 2017 - GERD (gastroesophageal reflux disease) - High cholesterol - HTN (hypertension) - Low grade squamous intraepithelial lesion (LGSIL) on cervical Pap smear 08/31/2015 HPV pos - Palpitation - Tobacco use quit in 2017 PAST SURGICAL HISTORY Procedure Laterality Date - CARDIAC CATH - CARPAL TUNNEL bilat hands x2 - ELBOW SURGERY HX 2008 rerouted ulnar nerve-bilat elbow - HYSTERECTOMY HX 12/2015 total robotic with LSO - INJECTION PROCEDURE FOR SACROILIAC 05/09/2010 BLOCK SACROILIAC WITH C-ARM performed by SHEA MANE at [facility] - KNEE SURGERY HX 2013,2012 - TRIGGER POINT INJECTION MULTI 1-2 MUSCLE GR 05/09/2010 INJECTION TRIGGER POINT ONE OR TWO MUSCLES performed by SHEA MANE at [facility] - TUBAL LIGATION HX 1989 Current Outpatient Prescriptions: oxyCODONE-acetaminophen (PERCOCET) 5-325 mg tablet Take 1 tablet by mouth every 6 hours as needed. Disp: Rfl: rosuvastatin (CRESTOR) 20 mg tablet Take 1 tablet by mouth once daily. Disp: 30 tablet Rfl: 0 ibuprofen (MOTRIN) 800 mg tablet Take 1 tablet by mouth every 8 hours as needed for Pain. Disp: 28 tablet Rfl: 0 simethicone, chewable (MYLICON) 80 mg chewable tablet Take 1 tablet by mouth every 6 hours as needed. (Patient not taking: Reported on 07/14/2018 ) Disp: 30 tablet Rfl: 0 aspirin 81 mg chewable tablet Take 81 mg by mouth once daily. Disp: Rfl: Aspirin, Buffered 81 mg tab Take by mouth once daily. Disp: Rfl: ALPRAZolam (XANAX) 0.5 mg tablet Take 0.5 mg by mouth at bedtime as needed. Disp: Rfl: lansoprazole (PREVACID) 30 mg ORAL capsule Take 30 mg by mouth once daily. Disp: Rfl: losartan/hydrochlorothiazide(HYZAAR 100 MG-25 MG TAB) Take one(1) tablet daily. Disp: Rfl: 0 No current facility-administered medications for this visit. ALLERGIES Allergen Reactions - Codeine Itching Social History Marital status: Spouse name: Years of education: Number of children: Social History Main Topics Smoking status: Former Smoker Packs/day: 0.50 Years: 25.00 Types: Cigarettes Smokeless tobacco: Never Used Alcohol use: Yes Comment: occasionally Drug use: No Sexual activity: Yes Partners with: Male control/protection: Tubal Ligation Family History Problem Relation Age of Onset - Stroke Mother - Hypertension Mother - Stroke Father - Hypertension Father Aneursym REVIEW OF SYSTEMS EyesNegative for vision changes, diplopia or epiphora. Ears, Mouth, nose, throat:No problems Cardiovascular: No Problems Respiratory: +SOB at times, coughing spells. Cannot expel air well Gastrointestinal : See above Genitourinary: Negative Musuloskeletal: Denies significant problems Integumentary: no rashes, lesions, or jaundice Neurological: No history of neurologic problems Endocrine: Negative for cold or heat intolerance, polyuria, polydipsia and goiter. Psychiatric: H/o anxiety Allergic/ Immunologic: Negative PHYSICAL EXAMINATION BP 132/70 Pulse 84 Ht 5' 3 (1.60m) Wt 172 lb (78.0kg) LMP 12/16/2015 BMI 30.48 kg/(m2). General Appearance: Well appearing, alert, in no acute distress, well-hydrated, well nourished. Eyes: PERRLA, conjunctiva and sclera normal Oropharynx: Lips, tongue, and oral mucosa normal. There is no thrush or oral ulcers. Neck: normal thyroid, no LAD Lungs:breath sounds clear to auscultation bilaterally, no crackles, rhonchi, or wheezes Heart: regular rate and rhythm, no murmurs or gallops. Abdomen: not distended, normal bowel sounds, soft and depressible, no guarding or rebound, no palpable mass, no organomegaly. Diffusely tender in all quadrants to light palpation. More so in the epigastric region. Questionably positive Lozano's sign. Rectal exam: Deferred. Extremities: no cyanosis or edema Skin: no jaundice, no spider angiomas, no palmar erythema Neuro/Psych:alert, oriented x 3. Anxious, possibly manic affect Assessment IMPRESSION Ms. Ramirez is a 48 year old year old female with a h/o anxiety on daily Xanax, htn, hysterectomy, and chronic back pain on daily oxycodone who presents with acute on chronic diarrhea as well as new onset severe epigastric pain n/v, and heartburn. She reports a h/o colitis on past CT scan from overusing antibiotics. She is currently failing 40mg omeprazole and has been on this for the last 6 months. She denies frequent NSAID use, tobacco (quit last year), and marijuana use. Wt is stable. Will arrange an EGD and colonoscopy with biopsies to evaluate for PUD, esophagitis, and colitis. Will check a RUQ u/s for cholecystitis. Will order infectious stool studies. Lastly, can check for gastroparesis with a GES. Will start her on daily Carafate and increase her PPI to BID in the interim given the symptom severity. PLAN -EGD, Colonoscopy MAC, gastric/esoph/colon bx -RUQ u/s -GES -C diff, Cx, O+P, CBC, lipase -Increase to BID PPI -Add Carafate QID -Pt to see PCP for pulmonary symptoms. States understanding. Elena Jernigan APRN.TOOLS ADMINISTRATOR August 11, 2018 1:02 PM CNOV Observed: 07/14/2018 Status: COMPLETED Source: [place] 11:00 AM [facility] REPOSITORY Office Visit (WOOB) NANCIE RAMIREZ ([id number]) 1970 F [facility] Date Time Provider Department 07/14/18 11:00 AM ANNMARIE MCINTOSH During your visit today, we recorded the following information about you: Blood pressure Weight 90/54 80.6 kg Annmarie Mcintosh MD 07/14/2018 11:26 AM Signed Nancie Ramirez is a 48 year old female who presents for problem visit for RLQ pain and pelvic cramping. HPI: S/p RATLH, LSO in 2016 - no mention of endometriosis. Right sided cramping started 2-3 months ago, has been worsening. Has pain daily and constant. She describes it as menstrual-like cramping. +Red blood with wiping about 1 month ago, has not had anymore episodes. She thinks it was vaginal. +Chunks of stuff in urine. No burning or pain on urination. No urgency or frequency of urination. +SARWAT. No urge incontinence. No constipation or diarrhea or vaginal discharge. Good appetite. No nausea or vomiting. +Sexually active. PAST MEDICAL HISTORY Diagnosis Date - Abnormal chest sounds - Anxiety - Aortic regurgitation 2+ per echo 04/2014 - Chest pain - Chronic SI joint pain - Cigarette smoker quit in 2018 - GERD (gastroesophageal reflux disease) - High cholesterol - HTN (hypertension) - Low grade squamous intraepithelial lesion (LGSIL) on cervical Pap smear 08/31/2015 HPV pos - Palpitation - Tobacco use quit in 2018 Current Outpatient Prescriptions: ALPRAZolam (XANAX) 0.5 mg tablet Take 0.5 mg by mouth at bedtime as needed. ibuprofen (MOTRIN) 800 mg tablet Take 1 tablet by mouth every 8 hours as needed for Pain. losartan/hydrochlorothiazide(HYZAAR 100 MG-25 MG TAB) Take one(1) tablet daily. oxyCODONE-acetaminophen (PERCOCET) 5-325 mg tablet Take 1 tablet by mouth every 6 hours as needed. rosuvastatin (CRESTOR) 20 mg tablet Take 1 tablet by mouth once daily. aspirin 81 mg chewable tablet Take 81 mg by mouth once daily. Aspirin, Buffered 81 mg tab Take by mouth once daily. lansoprazole (PREVACID) 30 mg ORAL capsule Take 30 mg by mouth once daily. simethicone, chewable (MYLICON) 80 mg chewable tablet Take 1 tablet by mouth every 6 hours as needed. (Patient not taking: Reported on 07/14/2018 ) No current facility-administered medications for this visit. Allergies As of Date: 07/14/2018 Allergen Noted Reaction CODEINE 09/04/2006 Itching Fully Assessed 07/14/2018 REVIEW OF SYSTEMS Abdomen: No nausea, vomiting, diarrhea, or constipation. Bladder: No dysuria, gross hematuria, urinary frequency, urinary urgency. Apron Man: No vaginal discharge. Expanded ROS: See HPI. Allergies and current medication updated:Yes EXAM: BP 90/54 Wt 177 lb 12.8 oz (80.7kg) LMP 12/16/2015 GENERAL: pleasant, female in no apparent distress HEENT: Normocephalic and atraumatic NECK: full range of motion DERMATOLOGY: Normal and without lesions CHEST: Normal inspiratory effort ABDOMEN: soft, no masses and +minimal tenderness in RLQ, no rebounding, no guarding, no rigidity PELVIC: external genitalia normal, normal Bartholin's glands, urethra, [place]'s glands, no vulvar lesions, good vaginal support, physiologic discharge present, normal appearing perineal body and perianal region BIMANUAL: no adnexal masses, +diffuse tenderness NEURO: exam grossly non-focal EXTREMITIES: normal ASSESSMENT AND PLAN: Encounter Diagnosis ICD-10-CM 1. RLQ abdominal pain R10.31 PELVIC US WHI 2. Pelvic cramping R10.2 UA DIP OB, URINE (POC) CANCELED: UA DIP B/O ? Benign abdominal exam ? No concern for appendicitis or other acute processes at this time ? Urine dip negative ? Will get pelvic US ? Discussed return precautions and when to call ? Will call with pelvic US results and further follow up DO Laura Hemphill MA 07/14/2018 11:32 AM Signed Addended by: LAURA ALAS MA on: 07/14/2018 11:32 AM Modules accepted: Orders Referring Provider: SELF [[id number]] Allergies As of Date: 07/14/2018 Noted Allergy Reaction CODEINE 09/04/2006 9 - Itching Date Reviewed: 07/14/2018 Reviewed by: Laura Alas - Fully Assessed Reason for Visit: Menstrual Problem [67] Primary Visit Diagnosis:RLQ abdominal pain [R10.31] Other Visit Diagnosis:Pelvic cramping [R10.2] Order(s):PELVIC US WHI [[id number]] Order #: [id number]: 1 FUTURE PELVIC US WHI [[id number]] Order #: [id number]: 1 UA DIP, URINE (POC) [[id number]] Order #: [id number]. #:[id number] Prescriptions as of 07/14/2018 Sig: ALPRAZOLAM 0.5 MG TABLET Take 0.5 mg by mouth at bedti* IBUPROFEN 800 MG TABLET Take 1 tablet by mouth every * * HYZAAR 100 MG-25 MG TABLET Take one(1) tablet daily. OXYCODONE-ACETAMINOPHEN 5 MG-* Take 1 tablet by mouth every * ROSUVASTATIN 20 MG TABLET Take 1 tablet by mouth once d* ASPIRIN 81 MG CHEWABLE TABLET Take 81 mg by mouth once audrey* ASPIRIN, BUFFERED 81 MG TABLET Take by mouth once daily. 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] INVALID FOR* Sciatica [M54.30] INVALID FOR* Degeneration of Lumbar or Lumbosacral Intervert*INVALID FOR* Sacroiliac Inflammation [M46.1] INVALID FOR* Piriformis Syndrome [G57.00] INVALID FOR* Essential hypertension with goal blood pressure*INVALID FOR* GERD (gastroesophageal reflux disease) [K21.9] INVALID FOR* Tobacco abuse [Z72.0] INVALID FOR* Aortic regurgitation [I35.1] INVALID FOR* Anxiety neurosis [F41.1] INVALID FOR* Dyspnea [R06.00] INVALID FOR* Cigarette nicotine dependence without complicat*INVALID FOR* Hyperglycemia [R73.9] INVALID FOR* HTN (hypertension) [I10] High cholesterol [E78.00] Cigarette smoker [F17.210] Chest pain [R07.9] Palpitation [R00.2] Level of Service: [facility] PATIENT VISIT LEVEL 3 [[id number]] Follow-up and Disposition History Recorded Encounter Status:Closed by ANNMARIE MCINTOSH MD on 07/14/18 PROGRESS Observed: 07/14/2018 Status: COMPLETED Source: [place] 10:46 AM [facility] REPOSITORY O ID: [id number] Author: Annmarie Wiswell Service: (none) Author Type: Physician Type: Progress Notes Filed: 07/14/2018 11:26 AM Note Text: Nancie Ramirez is a 48 year old female who presents for problem visit for RLQ pain and pelvic cramping. HPI: S/p RATLH, LSO in 2016 - no mention of endometriosis. Right sided cramping started 2-3 months ago, has been worsening. Has pain daily and constant. She describes it as menstrual-like cramping. +Red blood with wiping about 1 month ago, has not had anymore episodes. She thinks it was vaginal. +Chunks of stuff in urine. No burning or pain on urination. No urgency or frequency of urination. +SARWAT. No urge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 REPEAT Blood Pressure : / mmHG Vent. Rate : 072 BPM Atrial Rate : 072 BPM P-R Int : 128 ms QRS Dur : 084 ms QT Int : 412 ms P-R-T Axes : 060 048 040 degrees QTc Int : 451 ms Normal sinus rhythm Normal ECG Confirmed by DALLAS LUNA, LEVI ([id number]), editor managing director CINDI SOLOMON ([id number]) on 12/05/2017 2:11:23 PM Referred By: FANTA Confirmed By:LEVI HAYNES MD 12/05/17 1411 Date Levi Haynes MD CC: Lex Bhatti MD; Lia Yanez MD; OUT OF TOWN DOCTOR Signed 12 LEAD ELECTROCARDIOGRAM Observed: 12/05/2017 Status: F Source: SB 2:08 PM [facility]OSPITAL REPOSITORY [facility] Cardiovascular Services [address] [place] [address] 12 Lead EKG 12/03/17 1644 MR#: [id number] Acct: [id number] Name: NANCIE RAMIREZ Rep #: [id number] : 1970 47 From: Levi Haynes MD Attending Dr: Lex Bhatti MD Status: DIS AUGIE Ordering Dr: Vidhya Saavedra Date: 12/03/17 Location: [facility] Sex: F C Admitted: 12/03/17 Test Reason : CHEST PAIN Blood Pressure : / mmHG Vent. Rate : 100 BPM Atrial Rate : 100 BPM P-R Int : 118 ms QRS Dur : 074 ms QT Int : 352 ms P-R-T Axes : 069 060 061 degrees QTc Int : 454 ms Normal sinus rhythm Normal ECG Confirmed by LEVI HAYNES MD ([id number]), editor managing director CINDI SOLOMON ([id number]) on 12/05/2017 2:07:31 PM Referred By: JW Confirmed By:LEVI HAYNES MD 12/05/17 1407 Date Levi Haynes MD CC: Vidhya Saavedra; Lex Bhatti MD; OUT OF TOWN DOCTOR Signed DISCHARGE SUMMARY Observed: 12/04/2017 Status: F Source: [place] 12:46 PM [facility] REPOSITORY [facility] Medical Records Department [address] [place] [address] Discharge Summary 12/04/17 1143 MR#: [id number] Acct: [id number] Name: NANCIE RAMIREZ Rep #: [id number] : 1970 47 From: Lex Bhatti MD PCP: OUT OF TOWN DOCTOR Status: ADM AUGIE Y Location: [place] [address] Discharge Date and Diagnosis - Problem List Patient Problems: Active and Suspected Problems Chest pain (Acute) Date of Admission: 12/03/17 Date of Discharge: 12/04/17 - Primary Discharge Diagnosis Active and Suspected Problems Chest pain (Acute) - Secondary Discharge Diagnosis Chronic Problems Tobacco use (Chronic) COPD (chronic obstructive pulmonary disease) (Chronic) Anxiety (Chronic) HLD (hyperlipidemia) (Chronic) TIA (transient ischemic attack) (Chronic) Anterior scleritis of right eye (Chronic) HTN (hypertension) (Chronic) Hospital Course and Treatment Imaging Results: Clinical Impression(s) from Imaging Studies Chest X-Ray 12/03/17 16:59 IMPRESSION: Normal x-ray examination of the chest. Electronically Signed: Song Webster MD at 19:12 EDT , Service support , Chest CTA 12/03/17 18:04 IMPRESSION: Normal CTA chest examination, without a demonstrated pulmonary embolism or arterial dissection. There are mild emphysematous changes of the lungs. Electronically Signed: Song Webster MD at 18:55 EDT , Service support , Summary of Care Provided: The patient is a 47 year old F was past medical history significant for hypertension, with chest pain 1. Chest pain patient was placed on a monitored bed did rule out GA with serial cardiac enzymes patient underwent a stress echo which was negative for stress-induced ischemia patient also underwent CT of the chest with contrast which is negative for pulmonary embolism 2. Hypertension-blood pressure controlled, home medications continued with dose adjustment as needed 3. Dyslipidemia-patient is on statin therapy, continued at home dose 4. Tobacco dependence: Patient was counseled on cessation of the nicotine patch for tobacco cravings. 5. COPD confirmed with CT of the chest 7. DVT prophylaxis Discharge Activity: Return to Normal Activity, May not drive while taking narcotic pain medications. Home Medications: Medications to take at Discharge ALPRAZolam [Xanax] 1 mg PO DAILY 04/30/14 Losartan/Hydrochlorothiazide [Hyzaar 100-25 Tablet] 1 tab PO DAILY 04/30/14 Oxycodone HCl/Acetaminophen [Percocet 7.5-325 mg Tablet] 1 tablet PO BID PRN PRN 01/18/16 Ibuprofen [Motrin] 800 mg PO TID PRN PRN #40 tablet 01/26/16 Albuterol Sulfate [Ventolin Hfa] 2 puff IH Q4H PRN PRN 12/03/17 Rosuvastatin Calcium 20 mg PO DAILY 12/03/17 Primary Care Physician: Yusuf Serrano,Out of [Primary Care Provider] - Please follow up with your Primary Care Physician in: in 3- 5 days Medical Necessity - Tobacco Use Smoking Status: Current every day smoker Tobacco Use: Cigarettes Meaningful Use Info Meaningful Use Diagnoses (Choose all that apply): None applicable Code Visit OBSV E AND M: 13929 Observation care discharge 12/04/17 1246 <Electronically signed by Lex Bhatti MD> Date Lex Bhatti MD Cosigner Signature (if applicable): Date CC: Lex Bhatti MD; OUT OF TOWN DOCTOR Signed DISCHARGE INSTRUCTION Observed: 12/04/2017 Status: F Source: [place] 11:42 AM [facility] REPOSITORY [facility] Medical Records Department [address] [place] [address] [place] [address] Instructions for Home/Discharge Instructions 12/04/17 1140 MR#: [id number] Acct: [id number] Name: NANCIE RAMIREZ Adela Rep #: [id number] : 1970 47 From: Lex Bhatti MD PCP: OUT OF TOWN DOCTOR Status: ADM AUGIE - Discharge Diagnoses Current Active Problems: Current Active and Chronic Problems Tobacco use (Chronic) COPD (chronic obstructive pulmonary disease) (Chronic) Anxiety (Chronic) HLD (hyperlipidemia) (Chronic) TIA (transient ischemic attack) (Chronic) Chest pain (Acute) You will use the following diet at home:: No restrictions Discharge Activity: Return to Normal Activity, May not drive while taking narcotic pain medications. Allergies/Adverse Reactions: Allergies codeine Allergy (Verified 12/03/17 16:48) Itching gabapentin [From Neurontin] Adverse Reaction (Verified 12/03/17 16:48) Swelling Medications to take at Discharge ALPRAZolam [Xanax] 1 mg PO DAILY 04/30/14 Losartan/Hydrochlorothiazide [Hyzaar 100-25 Tablet] 1 tab PO DAILY 04/30/14 Oxycodone HCl/Acetaminophen [Percocet 7.5-325 mg Tablet] 1 tablet PO BID PRN PRN 01/18/16 Ibuprofen [Motrin] 800 mg PO TID PRN PRN #40 tablet 01/26/16 Albuterol Sulfate [Ventolin Hfa] 2 puff IH Q4H PRN PRN 12/03/17 Rosuvastatin Calcium [Rosuvastatin Calcium] 20 mg PO DAILY 12/03/17 Primary Care Physician: [facility] Doctor,Out of [Primary Care Provider] - Please follow up with your Primary Care Physician in: in 3- 5 days Proposed Discharge Date: 12/04/17 12/04/17 1142 <Electronically signed by Lex Bhatti MD> Date Lex Bhatti MD CC: OUT OF [facility] DOCTOR STRESS TEST ECHO W/ Observed: 12/04/2017 Status: F Source: [place] CONTRAST 11:24 AM [facility] REPOSITORY [facility] Cardiovascular Services [address] [place] [address] Stress Test Echo w/o Contrast MR#: [id number] Acct: [id number] Name: NANCIE RAMIREZ Rep #: [id number] : 1970 47 From: Luis Levin MD Primary Care: OUT OF [facility] DOCTOR Status: ADM AUGIE Ordering Dr: Vidhya Saavedra Sex: F C Reason For Study: CHEST PAIN Stress Results Protocol: Dobutamine Stress Echocardiogram Maximum Predicted HR: 173 bpm Target HR: 147 bpm% Maximum Predicted HR: 87 % DurationHeart Rate Stage (mm:ss) (bpm) BPDos e BASELINE 65 106/79 DSE- 10 MCG 3:21 83 128/6410.00 DSE- 20 MCG 3:09 13 3 112/8420.00 DSE- 30 MCG 1:08 15 1 / 30. 00 RECOVERY 97 113/67 Stress Duration: 7:38 mm:ss Maximum Stress HR: 151 bpm Baseline Echocardiogram Findings The estimated ejection fraction is 65 %. Stress Echo Wall motion Data Resting WMIntermediate WMStress WM Resting Wall Motion Wall Motion Stress No regional wall motion No regional wall motion abnormalities noted. abnormalities noted. EKG Data The baseline ECG demonstrates normal sinus rhythm with at rate of _ beats per minute. During stress, there were no ST or T wave changes noted to suggest ischemia. No arrhythmias noted. No clinical angina was noted. The patient was titrated from 10 mcg to a maximun of 30 mcg of dobutamine during the stress. The maximum heart rate attained was 151 beats per minute. This was 87% of maximum predicted heart rate. Interpretation Summary The estimated ejection fraction is 65 %. Normal adequate dobutamine echocardiogram. Negative for ischemia by ECG and ECHO criteria. No anginal symptoms noted. No arrhythmias noted. Appropriate BP response to dobutamine. Final LVEF=75%. The patient was titrated from 10 mcg to a maximun of 30 mcg of dobutamine during the stress. Doppler Measurements AND Calculations AI max jeremy: 473.1 cm/sec AI max P.5 mmHg AI dec slope: 264.5 cm/sec2 AI P1/2t: 524.0 msec Ordering Physician: Vidhya Saavedra Referring Physician: SHEYLA MCMAHAN Performed By: Torrey Mcdonald RCS 12/04/17 1124 Date Luis Levin MD CC: Vidhya Saavedra; Lex Bhatti MD; OUT OF TOWN DOCTOR Date Dictated: 12/04/17 0952 Date Transcribed: 12/04/171123 [employer]: Signed CBC-COMPLETE BLOOD CNT Collected: 12/04/2017 Status: F Source: SB NO DIFF 3:38 AM [facility] REPOSITORY TYPE CODE TESTS RESULT OUT OF RANGE REFERENCE UNITS LAB L100.1000 4.4-11.0 K/mm3 Normal WBC 9.5 LAB L100.1200 4.2-5.4 M/mm3 Low RBC 4.06 LAB L100.1300 12.0-15.0 g/dl Normal HGB 13.3 LAB L100.1400 37-47 % Normal HCT 40.3 LAB L100.1500 81-99 fL High MCV 99.3 LAB L100.1600 27.0-32.0 pg High MCH 32.8 LAB L100.1700 32-36 g/gl Normal MCHC 33.0 LAB L100.1810 11.6-14.6 % Normal RDW CV 13.2 LAB L100.1820 35.1-43.9 fl High RDW SD 47.4 LAB L100.1900 150-450 K/mm3 Normal PLT 243 LAB L100.2000 6.2-12.0 fl Normal MPV 11.2 Performed By: #### L100.0500 #### [facility] [address] [place], [place], [address] TROPONIN-I Collected: 12/04/2017 Status: F Source: [place] 3:38 AM [facility] REPOSITORY Order Comment: 'TROP' Serial specimen #1, #2, #3, or #4: 3 TYPE CODE TESTS RESULT OUT OF RANGE REFERENCE UNITS LAB L501.4010 <0.045 ng/mL Normal < 0.015 TROPONIN-I Result Comment: TROPONIN-I EXPECTED VALUES <0.045 NEGATIVE 0.045 - 0.590 AT RISK OF GA > OR = 0.600 SUGGEST GA Not every elevated troponin is indicative of GA. These values should be used with clinical judgement in examining the patient's clinical picture for diagnosis. To establish a diagnosis of GA versus myocardial injury, there must be a demonstrated rise and/or fall in the troponin values, in addition to ischemic symptoms, EKG changes, new regional wall motion abnormality, and/or angiographical evidence. PLEASE NOTE: REFERENCE RANGES EDITED 17 Performed By: #### L501.4010 #### [facility] [address] [place], [address] PROTHROMBIN TIME W/INR Collected: 12/04/2017 Status: F Source: [place] 3:38 AM [facility] REPOSITORY TYPE CODE TESTS RESULT OUT OF RANGE REFERENCE UNITS LAB L300.4150 11.7-14.9 SECONDS Normal PROTIME 13.2 LAB L300.4200 Normal INR 1.0 Performed By: #### L300.3900, L300.4310 #### [facility] [address] [place], [address] PARTIAL THROMBOPLAST Collected: 12/04/2017 Status: F Source: SB TIME 3:38 AM [facility] REPOSITORY TYPE CODE TESTS RESULT OUT OF RANGE REFERENCE UNITS LAB L300.4310 24.1-36.2 Seconds Normal PTT 27.2 Performed By: #### L300.3900, L300.4310 #### [facility] [address] [place], [address] BASIC METABOLIC Collected: 12/04/2017 Status: F Source: SB PROFILE (BMP) 3:38 AM [facility] REPOSITORY TYPE CODE TESTS RESULT OUT OF RANGE REFERENCE UNITS LAB L501.0100 74-106 mg/dL Normal GLU 92 Result Comment: Please note revised GLUCOSE reference range effective 2017. LAB L501.1000 7-18 mg/dL Normal BUN 12 LAB L501.1100 0.55-1.02 mg/dL Normal CREAT,SERUM 0.69 Result Comment: The validity of the calculated GFR AND GFRAA in patients over 70 years has not been determined. Clinical correlation is essential. LAB L501.1110 >60 mL/min Normal EST GFR 96 Result Comment: Non- GFR Calc LAB L501.1115 >60 mL/min Normal EST GFR - AA 117 Result Comment: GFR Calc LAB L501.1255 ml/min Normal Estimated CRCL 79.72 LAB L501.1300 10-20 RATIO Normal BUN/CRE 17.3 LAB L501.2200 8.5-10 mg/dL Normal .1 CA 8.6 LAB L501.5300 136-14 mmol/L Normal 5 NA 140 LAB L501.5600 3.5-5. mmol/L Normal 1 K 3.6 LAB L501.5900 98-107 mmol/L High CL 108 LAB L501.6100 21.0-3 mmol/L Normal 2.0 CO2 25.0 LAB L501.6200 5-15 Normal GAP 7 Performed By: #### L500.2500, L500.4100 #### [facility] [address] [place], [address] LIPID PROFILE Collected: 12/04/2017 Status: F Source: SB 3:38 AM [facility] REPOSITORY TYPE CODE TESTS RESULT OUT OF RANGE REFERENCE UNITS LAB L501.4900 200 mg/dL Normal CHOL 123 Result Comment: <200 mg/dL Desirable 200-240 mg/dL Borderline >240 mg/dL High Risk LAB L501.5000 mg/dL Normal TRIG 144 Result Comment: The drugs N-Acetylcysteine and Metamizole may falsely depress this assay. Serum Triglycerides Reference Interval Normal <150 mg/dL Borderline high 150 - 199 mg/dL High 200 - 499 mg/dL Very High > or = 500 mg/dL LAB L501.6400 mg/dL Low HDL 37 Result Comment: The drugs N-Acetylcysteine and Metamizole may falsely depress this assay. Reference Range HDL <40 mg/dL Low HDL Cholesterol HDL >or= 60 mg/dL High HDL Cholesterol LAB L501.6500 0-130 mg/dL Normal LDL 57 LAB L501.6600 5-40 mg/dL Normal VLDL 29 Performed By: #### L500.2500, L500.4100 #### [facility] [address] [place], [address] EMERGENCY DEPARTMENT Observed: 12/04/2017 Status: F Source: [place] SUMMARY 12:45 AM [facility] REPOSITORY [facility] Medical Records Department [address] [place] [address] Emergency Department Summary 12/03/17 1702 MR#: [id number] Acct: [id number] Name: NANCIE RAMIREZ Rep #: [id number] : 1970 47 From: Lia Yanez MD PCP: OUT OF TOWN DOCTOR Status: ADM AUGIE - ER Visit Summary Date of Service: 12/03/17 Chief Complaint: Chest pain History of Present Illness: The patient is a 47 F with rather sudden onset of chest pain that started approximately 30 minutes prior to arrival. She describes it as a squeezing and stabbing sensation up the center of her chest. It does somewhat go into her back. She states she has pain with a deep breath. She was given aspirin and 1 nitro with EMS with no significant change. Patient does report a history of aortic valve regurg. She is a history of hypertension and high cholesterol. She does report having a heart cath 2 or 3 years ago. At that time there was no significant blockage. Physical Examination: Vital signs are unremarkable. Patient sitting upright in bed. She is anxious and intermittently tearful. Head neck examination is unremarkable. Heart is regular rate and rhythm. Lung sounds are clear. Abdomen is soft and nontender. Lower external examination was no calf tenderness or edema. She has equal pulses throughout. Test Results: EKG is sinus at [address] change. Portable chest x-ray unremarkable. CBC was a white count of 12.3 and a hemoglobin of 15.8. Chemistry studies are normal. Troponin is less than 0.015. D-dimer is less than 0.27. Emergency Department Course and Treatment: Patient was given aspirin and 1 nitro with EMS. This did not change her pain. She was given 0.5 mg of Dilaudid along with Zofran 2 doses in the emergency room. Due to the continued pain CTA of the chest was obtained and is unremarkable. Repeat EKG was obtained and is unchanged. Patient will be admitted for further treatment and evaluation. Treatment Plan: [] Disposition: Admit Impression: Chest pain This note was generated with Gnammo dictation software. It may contain incorrect words, spelling, and punctuation that were not noted in review of the chart prior to signing ED Disposition - Plan for ED Patient: Chief Complaint: Chest Pain What to do if you have Problems For any increased pain, shortness of breath, bleeding, nausea or vomiting, chest pain, or any unexpected problems, contact your Primary Care Provider. Call [facility] ([phone]) or report to the closest Emergency Room. Call 911 if necessary. 12/04/17 0045 <Electronically signed by Lia Yanez MD> Date Lia Yanez MD Cosigner Signature (If Indicated): Date CC: OUT OF TOWN DOCTOR TROPONIN-I Collected: 12/04/2017 Status: F Source: SB 12:31 AM [facility] REPOSITORY Order Comment: 'TROP' Serial specimen #1, #2, #3, or #4: 2 TYPE CODE TESTS RESULT OUT OF RANGE REFERENCE UNITS LAB L501.4010 <0.045 ng/mL Normal < 0.015 TROPONIN-I Result Comment: TROPONIN-I EXPECTED VALUES <0.045 NEGATIVE 0.045 - 0.590 AT RISK OF GA > OR = 0.600 SUGGEST GA Not every elevated troponin is indicative of GA. These values should be used with clinical judgement in examining the patient's clinical picture for diagnosis. To establish a diagnosis of GA versus myocardial injury, there must be a demonstrated rise and/or fall in the troponin values, in addition to ischemic symptoms, EKG changes, new regional wall motion abnormality, and/or angiographical evidence. PLEASE NOTE: REFERENCE RANGES EDITED 17 Performed By: #### L501.4010 #### [facility] [address] [place], [address] URINE DRUG SCREEN Collected: 12/03/2017 Status: F Source: SB ([employer]) 9:20 PM [facility] REPOSITORY TYPE CODE TESTS RESULT OUT OF RANGE REFERENCE UNITS LAB L505.0075 TO BE Normal CONFIRMED Result Comment: CONFIRMATORY TESTING FOR ALL POSITIVE URINE DRUG SCREEN RESULTS WILL ONLY BE SENT OUT UPON PHYSICIAN ORDER. VISTA Urine Drug Screen methods provide only preliminary analytical test results. A more specific alternate chemical method must be used in order to obtain a confirmed analytical result. Gas chromatography/mass spectrometery (GC/MS) is the preferred confirmatory method. Clinical consideration and professional judgement should be applied to any drug of abuse test result, particularly when preliminary positive results are used. URINE TCA TESTING MUST BE ORDERED SEPARATELY. USE TEST MNEMONIC: [facility] LAB L505.5005 VISTA UDS PH 5 Normal LAB L505.5015 <1000 ng/mL AMPHETAMINES Normal NEGATIVE LAB L505.5025 < 200 ng/mL BARBITIURATES Normal NEGATIVE LAB L505.5035 < 200 High ng/mL BENZODIAZIPINE POSITIVE LAB L505.5045 < 300 ng/mL COCAINE Normal NEGATIVE LAB L505.5055 < 500 ng/mL ECSTACY Normal NEGATIVE LAB L505.5065 < 300 ng/mL METHADONE Normal NEGATIVE LAB L505.5075 < 300 High ng/mL OPIATES POSITIVE LAB L505.5085 < 25 ng/mL PCP Normal NEGATIVE LAB L505.5095 < 50 ng/mL THC Normal NEGATIVE Performed By: #### L505.5000 #### [facility] [address] [place], [address] TROPONIN-I Collected: 12/03/2017 Status: F Source: [place] 9:12 PM [facility] REPOSITORY TYPE CODE TESTS RESULT OUT OF RANGE REFERENCE UNITS LAB L501.4010 <0.045 ng/mL Normal < 0.015 TROPONIN-I Result Comment: TROPONIN-I EXPECTED VALUES <0.045 NEGATIVE 0.045 - 0.590 AT RISK OF GA > OR = 0.600 SUGGEST GA Not every elevated troponin is indicative of GA. These values should be used with clinical judgement in examining the patient's clinical picture for diagnosis. To establish a diagnosis of GA versus myocardial injury, there must be a demonstrated rise and/or fall in the troponin values, in addition to ischemic symptoms, EKG changes, new regional wall motion abnormality, and/or angiographical evidence. PLEASE NOTE: REFERENCE RANGES EDITED 17 Performed By: #### L501.4010, L501.5200 #### [facility] [place], [address] MAGNESIUM Collected: 12/03/2017 Status: F Source: [place] 9:12 PM [facility] REPOSITORY TYPE CODE TESTS RESULT OUT OF RANGE REFERENCE UNITS LAB L501.5200 1.6-2.6 mg/dL Normal MG 2.2 Performed By: #### L501.4010, L501.5200 #### [facility] [place], [address] HISTORY AND PHYSICAL Observed: 12/03/2017 Status: F Source: [place] EXAM 8:12 PM [facility] REPOSITORY [facility] Medical Records Department [address] [place] [address] History and Physical 12/03/171941 MR#: [id number] Acct: [id number] Name: NANCIE RAMIREZ Rep #: [id number] : 1970 47 From: Vidhya Saavedra PCP: OUT OF TOWN DOCTOR Status: ADM AUGIE Y Location: [place] [id number] Problem List (1) Tobacco use Status: Chronic (2) COPD (chronic obstructive pulmonary disease) Status: Chronic Qualifiers: Chronic bronchitis type: unspecified (3) Anxiety Status: Chronic (4) HLD (hyperlipidemia) Status: Chronic Qualifiers: Hyperlipidemia type: unspecified Qualified Code(s): E78.5 - Hyperlipidemia, unspecified (5) TIA (transient ischemic attack) Status: Chronic Qualifiers: Transient cerebral ischemia type: unspecified Qualified Code(s): G45.9 - Transient cerebral ischemic attack, unspecified (6) HTN (hypertension) Status: Chronic Qualifiers: Hypertension type: essential hypertension Qualified Code(s): I10 - Essential (primary) hypertension (7) Chest pain Status: Acute Qualifiers: Chest pain type: unspecified Qualified Code(s): R07.9 - Chest pain, unspecified History of Present Illness Date of Admission: 12/03/17 Chief Complaint: Chest pain The patient is a 47 y/o F w/ PMHx: Tobacco use, Chronic COPD, HTN, HLD, Hx TIA, Anxiety, Hx Prior Cocaine Usage who presents to the [facility] ED on 12/03/17 with onset prior to ED arrival tight squeezing chest discomfort in the midsternal region with radiation to the back, also noting sharp intermittent stabbing pain with this and noting increased pain with deep inspiration with dyspnea 10/10 initially with dyspnea associated with no nausea, emesis or diaphoresis associating while at rest watching TV. In the ED work-up included T 98.8, HR 105-->81, BP 137/75-->77/62 after pain regimen, RR 20-->16, 97% on RA, CBC w/ WBC 12.3, Hgb 15.8, Plts 330 without shift, D-dimer < 0.27, unremarkable BMP, trop < 0.015, CXR without acute findings, CTPA without evidence PE, chronic COPD changes, EKG w/ SR, no acute evidence of chronic changes. In the ED patient administered zofran, dilaudid, fentanyl, asa therapy. Past Medical History Past Medical History (Chronic Problems): Chronic Problems Tobacco use (Chronic) COPD (chronic obstructive pulmonary disease) (Chronic) Anxiety (Chronic) HLD (hyperlipidemia) (Chronic) TIA (transient ischemic attack) (Chronic) Anterior scleritis of right eye (Chronic) HTN (hypertension) (Chronic) Allergies codeine Allergy (Verified 12/03/17 16:48) Itching gabapentin [From Neurontin] Adverse Reaction (Verified 12/03/17 16:48) Swelling Home Medications: Ambulatory Orders Medication Instructions Recorded ALPRAZolam [Xanax] 0.5 mg PO DAILY 04/30/14 Losartan/Hydrochlorothiazide 1 tab PO DAILY 04/30/14 [Hyzaar 100-25 Tablet] Oxycodone HCl/Acetaminophen 1 tablet PO BID PRN PRN 01/18/16 Surgical History: - - Bilateral knee arthroplastic surgery, bilateral ulnar nerve repositioning, carpal tunnel release, right shoulder surgery 2, hysterectomy, recent left ganglion cyst removal wrist. Psychiatric History: Anxiety DISPLAY COORDINATOR History: No pertinent DISPLAY COORDINATOR history Lives: Spouse/ Significant Other Smoking Status: Current every day smoker - 1 ppd. Tobacco Use: Cigarettes Alcohol: Occasional Drugs: None - Past usage of cocaine, notes clean x 2-3 years. - *Family History Paternal History Items: Heart Disease, Hypertension, Stroke - Father had brain aneurysm Maternal History Items: Heart Disease, Hypertension Review of Systems Constitutional: Denies: Chills, Fever, Weight Change HEENT: Denies: Head Aches, Sinus Congestion, Sinus Drainage Cardiovascular: Reports: Chest Pain, Chest Tightness. Denies: Palpitations Respiratory: Reports: Pleuritic Pain, Shortness of Breath. Denies: Cough, Shortness of breath at rest, Sputum production, Wheezing Gastrointestinal: Denies: Abdominal Pain, Nausea, Vomiting Genitourinary: Denies: Dysuria Musculoskeletal: Reports: Back Pain. Denies: Joint Pain, Joint Tenderness Skin: Denies: Rash, Wounds Neurological: Denies: Numbness, Tingling, Focal weakness Psychiatric: Denies: Anxiety, Depression, Homicidal Ideations, Suicidal Ideations Hematologic/ Lymphatic: Denies: Easy Bruising, Easy Bleeding VTE Information - Inpt Only VTE Present on Admission: No VTE Mechan Device Prophylaxis: SCD's VTE Pharm Prophylaxis ordered?: Yes Patient Problems: Active and Suspected Problems Chest pain (Acute) Subjective: Seated upright in the ED bed, notes ongoing discomfort, worse with inspiration. Objective: Physical Examination: General: awake, alert, oriented x 3 and cooperative, seated upright in the ED bed, notes ongoing discomfort, reproducible discomfort. Skin: normal color, turgor, no icterus, cyanosis. HEENT: AT/NC, EOMI, PERRLA, mildly dry MM, no carotid bruits or JVD noted. Lungs: Diminished bases, mild effort, difficult as noting pain w/ inspiration, no rales, ronchi or wheezing. Heart: Regular rate and rhythm; no gallop, rub audible, reproducible discomfort w/ anterior palpation of the chest. Abdomen: soft, NTTP, ND, normal BS, no HSM. Extremities: no cyanosis, clubbing, or edema. Neurological: patient awake, alert, oriented x 3; cognitive function intact; pupils equally reactive to light and accomodation; cranial nerves II-XII grossly normal, moving all 4 extremities, no focal deficits, strength severely globally decreased secondary to acute presentation. Psychiatric: affect appears normal, no acute evidence of depressive or anxiety feelings. - Physical Exam Vital Signs Temp Pulse Resp BP Pulse Ox 98.8 F 81 16 77/62 L 97 12/03/17 16:44 12/03/17 18:42 12/03/17 18:42 12/03/17 18:42 12/03/17 18:42 Oxygen Flow Rate (L/min) 2 Oxygen Delivery Method Room Air Weight: 155 lb 13.869 oz Body Mass Index (BMI) 28.5 Finger Stick Blood Glucose 89 Laboratory Tests Past 24 Hrs Assessment/Plan Active and Suspected Problems Chest pain (Acute) The patient is a 47 y/o F w/ PMHx: Tobacco use, Chronic COPD, HTN, HLD, Hx TIA, Anxiety, Hx Prior Cocaine Usage who presents to the [facility] ED on 12/03/17 with onset prior to ED arrival tight squeezing chest discomfort in the midsternal region with radiation to the back, noting increased pain with deep inspiration with dyspnea 10/10 initially with dyspnea associated with no nausea, emesis or diaphoresis associating while at rest watching TV. (1) Atypical Chest Pain: Likely musculoskeletal but notable history. In the ED work-up included T 98.8, HR 105-->81, BP 137/75-->77/62 after pain regimen, RR 20-->16, 97% on RA, CBC w/ WBC 12.3, Hgb 15.8, Plts 330 without shift, D-dimer < 0.27, unremarkable BMP, trop < 0.015, CXR without acute findings, CTPA without evidence PE, chronic COPD changes, EKG w/ SR, no acute evidence of chronic changes. Will admit to telemetry, place on a monitored bed to assure no acute myocardial infarction with serial cardiac enzymes and EKGs. Patient is able to perform exercise and does not have LBBB, V-pacing, ST-T changes, LVH, prior PCI history and is not on digoxin thus will proceed with AM exercise stress echo test. ASA, NG, morphine. FLP in AM. Mag pending. If cardiac evaluation unremarkable would plan to initiate toradol, possible discharge to home on mobic regimen. (2) Hypertension: Continue home regimen including losartan, hydrochlorothiazide w/ hold parameters given hypotension w/ pain regimen while in the ED, PRN hydralazine. (3) Hyperlipidemia: Continue home statin regimen. AM FLP. (4) Chronic COPD: ATC duonebs, PRN albuterol, HOB, IS parameters. (5) Tobacco Abuse: Encouraged cessation, inpatient consultation per RT, NR if desired. (6) History of Polysubstance abuse: Prior hx cocaine, will obtain UDS. (7) DVT Prophylaxis: SCDs, lovenox. Code Visit OBSV E AND M: [id number] Initial observation care L3 12/03/172011 <Electronically signed by Vidhya Saavedra > Date Vidhya Saavedra Cosigner Signature: Date (if applicable) CC: Vidhya Saavedra; OUT OF TOWN DOCTOR Signed CTA CHEST W/WO Observed: 12/03/2017 Status: F Source: SB CONTRAST 6:05 PM [facility] REPOSITORY [facility] Imaging Services [address] [place] [address] CTA Chest W/WO Contrast MR#: [id number] Acct: [id number] Name: NANCIE RAMIREZ Rep #: [id number] : 1970 F 47 From: Song Webster MD PCP: OUT OF TOWN DOCTOR Status: REG ER Study: CTA Chest W/WO Contrast Date of Exam: 12/03/17 Exam# [id number] Ordering Dr: Lia Yanez MD STUDY: CTA CHEST REASON FOR EXAM: Female, 47 years old. Sternal pain x30 minutes RADIATION DOSAGE (If Supplied By Facility): CTDIvol = ( 5.48 ) mGy, DLP = ( 228.57 ) mGycm TECHNIQUE: The examination was performed with the intravenous administration of 75 ml of Isovue 370 contrast material. Post-processing of the angiographic images was performed, with multiplanar reformation and 3D reconstruction. Individualized dose optimization techniques were used for this CT. COMPARISON: None. FINDINGS: Normal enhancement of the main pulmonary artery and right and left pulmonary arteries. Normal enhancement of the bilateral peripheral pulmonary arteries. There is no demonstrated pulmonary embolism. Normal thoracic aorta and visualized great vessels. There is no demonstrated aortic dissection. Normal heart and pericardium. Normal mediastinum. Normal hilar regions. Normal visualized trachea and bronchi. The lungs are well expanded. There are mild emphysematous changes of the lungs. Normal pleura. Normal chest wall structures. Normal osseous structures. Normal visualized upper abdomen. CT/CTA Chest W/WO Contrast IMPRESSION: Normal CTA chest examination, without a demonstrated pulmonary embolism or arterial dissection. There are mild emphysematous changes of the lungs. Electronically Signed: Song Webster MD at 18:55 EDT , Service support , CC: Lia Yanez MD; OUT OF TOWN DOCTOR Tire Fabricator: Signed CHEST 1 VIEW Observed: 12/03/2017 Status: F Source: SB (PORTABLE) 5:00 PM [facility] REPOSITORY [facility] Imaging Services [address] [place] [id number] Chest 1 View (Portable) MR#: [id number] Acct: [id number] Name: NANCIE RAMIREZ Rep #: [id number] : 1970 F 47 From: Song Webster MD PCP: OUT OF [facility] DOCTOR Status: REG ER Study: Chest 1 View (Portable) Date of Exam: 12/03/17 Exam# [id number] Ordering Dr: Lia Yanez MD STUDY: X-RAY CHEST REASON FOR EXAM: Female, 47 years old. Chest pain TECHNIQUE: Single AP portable view of the chest. COMPARISON: Prior study of 02/21/2017 FINDINGS: The lungs are clear and expanded. There is no demonstrated pleural abnormality. Normal size heart. Normal mediastinum and andreina. Normal visualized pulmonary arteries. Normal visualized aortic arch and descending thoracic aorta. Normal visualized thoracic spine. Normal visualized ribs, clavicles, and shoulders. There is no demonstrated abnormality of the visualized soft tissue structures of the upper abdomen. RAD/Chest 1 View (Portable) IMPRESSION: Normal x-ray examination of the chest. Electronically Signed: Song Webster MD at 19:12 EDT , Service support , CC: Lia Yanez MD; OUT OF [facility] DOCTOR T[employer] Fabricator: Signed CBC W/DIFF, AUTOMATED Collected: 12/03/2017 Status: F Source: SB 4:52 PM [facility] REPOSITORY TYPE CODE TESTS RESULT OUT OF RANGE REFERENCE UNITS LAB L100.1000 4.4-11.0 K/mm3 High WBC 12.3 LAB L100.1200 4.2-5.4 M/mm3 Normal RBC 4.75 LAB L100.1300 12.0-15.0 g/dl High HGB 15.8 LAB L100.1400 37-47 % Normal HCT 45.8 LAB L100.1500 81-99 fL Normal MCV 96.4 LAB L100.1600 27.0-32.0 pg High MCH 33.3 LAB L100.1700 32-36 g/gl Normal MCHC 34.5 LAB L100.1810 11.6-14.6 % Normal RDW CV 13.2 LAB L100.1820 35.1-43.9 fl High RDW SD 45.9 LAB L100.1900 150-450 K/mm3 Normal PLT 330 LAB L100.2000 6.2-12.0 fl Normal MPV 11.4 LAB L100.2100 47-70 % Normal NEUT% 60.3 LAB L100.2200 19-41 % Normal LY% 30.4 LAB L100.2300 0-10 % Normal MONO% 6.8 LAB L100.2400 0-5 % Normal EO% 2.0 LAB L100.2500 0-1 % Normal BASO% 0.3 LAB L100.2550 0.0-0.9 % Normal IM GRAN % 0.200 Result Comment: IG% - Immature Granulocytes (promyelocytes, myelocytes and metamyelocytes) > 1% indicates that a LEFT SHIFT is Present. LAB L100.2620 2.0-7.7 X10 3/uL Normal Absolute Neut 7.4 LAB L100.2720 0.83-4.51 X10 3/ul Normal Absolute Lymph 3.74 Performed By: #### L100.0100 #### [facility] [address] [place], [place], [address] BASIC METABOLIC Collected: 12/03/2017 Status: F Source: [place] PROFILE ([facility]) 4:52 PM [facility] REPOSITORY TYPE CODE TESTS RESULT OUT OF RANGE REFERENCE UNITS LAB L501.0100 74-106 mg/dL Normal GLU 98 Result Comment: Please note revised GLUCOSE reference range effective 2017. LAB L501.1000 7-18 mg/dL Normal BUN 10 LAB L501.1100 0.55-1.02 mg/dL Normal CREAT,SERUM 0.80 Result Comment: The validity of the calculated GFR AND GFRAA in patients over 70 years has not been determined. Clinical correlation is essential. LAB L501.1110 >60 mL/min Normal EST GFR 81 Result Comment: Non- GFR Calc LAB L501.1115 >60 mL/min Normal EST GFR - AA 98 Result Comment: GFR Calc LAB L501.1255 ml/min Normal Estimated CRCL 68.76 LAB L501.1300 10-20 RATIO Normal BUN/CRE 12.5 LAB L501.2200 8.5-10 mg/dL Normal .1 CA 9.7 LAB L501.5300 136-14 mmol/L Normal 5 NA 140 LAB L501.5600 3.5-5. mmol/L Normal 1 K 3.7 LAB L501.5900 98-107 mmol/L Normal CL 104 LAB L501.6100 21.0-3 mmol/L Normal 2.0 CO2 28.0 LAB L501.6200 5-15 Normal GAP 8 Performed By: #### L500.2500, L501.4010 #### [facility] [address] [place], [place], [id number] TROPONIN-I Collected: 12/03/2017 Status: F Source: [place] 4:52 PM [facility] REPOSITORY TYPE CODE TESTS RESULT OUT OF RANGE REFERENCE UNITS LAB L501.4010 <0.045 ng/mL Normal < 0.015 TROPONIN-I Result Comment: TROPONIN-I EXPECTED VALUES <0.045 NEGATIVE 0.045 - 0.590 AT RISK OF GA > OR = 0.600 SUGGEST GA Not every elevated troponin is indicative of GA. These values should be used with clinical judgement in examining the patient's clinical picture for diagnosis. To establish a diagnosis of GA versus myocardial injury, there must be a demonstrated rise and/or fall in the troponin values, in addition to ischemic symptoms, EKG changes, new regional wall motion abnormality, and/or angiographical evidence. PLEASE NOTE: REFERENCE RANGES EDITED 17 Performed By: #### L500.2500, L501.4010 #### [facility] [address] [place], [place], [address] D-DIMER QUANTITATIVE Collected: 12/03/2017 Status: F Source: [place] (DVT/PE) 4:52 PM [facility] REPOSITORY TYPE CODE TESTS RESULT OUT OF RANGE REFERENCE UNITS LAB L300.8000 0.27-0.49 FEU/ug/m Low D-DIMER < 0.27 QUANT Result Comment: NORMAL D-Dimer level (<0.50) indicates no DVT or PE. NORMAL D-Dimer level (<0.50) indicates no DVT or PE. Performed By: #### L300.8000 #### [facility] [address] [place], [address] UPPER EXT JOINT Observed: 11/05/2017 Status: F Source: SB ONLY W/WO CONT 12:43 PM [facility] REPOSITORY [facility] Imaging Services [address] [place] [address] Upper Ext Joint Only W/WO Cont MR#: [id number] Acct: [id number] Name: NANCIE RAMIREZ Rep #: [id number] : 1970 F 47 From: Miles Ross MD PCP: OUT OF TOWN DOCTOR Status: REG CLI Study: Upper Ext Joint Only W/WO Cont Date of Exam: 11/05/17 Exam# [id number] Ordering Dr: SHEYLA MCMAHAN STUDY: MRI LEFT WRIST WITH AND WITHOUT CONTRAST REASON FOR EXAM: Left wrist mass, pain, fall 5 months ago. TECHNIQUE: Standardized fat and water weighted pulse sequences were obtained in all 3 orthogonal planes, pre-and post contrast administration. 7 ml of Gadavist contrast material was administered intravenously for the contrast portion of the examination. COMPARISON: None. FINDINGS: Normal visualized distal radius and ulna. There is a bone island in the subchondral distal radius. Normal distal radioulnar articulation (DRUJ). Normal triangular fibrocartilaginous complex (TFCC). Normal carpal bones. Normal radiocarpal, intercarpal and midcarpal articulations. Normal pisotriquetral articulation. Normal visualized interosseous scapholunate ligament. Normal extensor tendons. Normal flexor tendons. Normal carpal tunnel with a normal median nerve. Normal carpometacarpal articulation of the thumb. Normal second through fifth carpometacarpal articulations. Normal visualized metacarpal bones. There is a lobulated ganglion cyst at the palmar radial aspect of the wrist corresponding to the skin marker (inversion recovery coronal images 7-10; inversion recovery axial images 13-16) measuring 1.1 x 1.8 x 1.3 cm (AP x transverse x length). There is contrast enhancement of the wall of the ganglion cyst (postcontrast T1 axial images 18-20). There is a very small ganglion cyst at the dorsal aspect of the ynkxfceq-mrblua-cqrsltda articulation (inversion recovery axial image 13) measuring 0.3 cm in transverse dimension. MRI/Upper Ext Joint Only W/WO Cont IMPRESSION: Ganglion cyst at the palmar radial aspect of the wrist corresponding to the skin marker. Very small dorsal ganglion cyst. Electronically Signed: Miles Ross MD at 14:25 EDT Tel , Service support , CC: SHEYLA MCMAHAN; OUT OF TOWN DOCTOR Tire Fabricator: Signed NCS AND/OR EMG Observed: 10/28/2017 Status: F Source: [place] PATIENT 11:03 AM [facility] REPOSITORY [facility] Pulmonary Services/Neurology [address] [place] [id number] MR#: [id number] Acct: [id number] Name: NANCIE RAMIREZ Rep #: [id number] : 1970 47 From: Tony Chirinos MD Referring Dr: Julio Cesar Kimbrough DO Status: REG CLI Ordering Dr: Date: Location: [facility] Sex: F C NCS and/or EMG Patient Report Ordering Doctor: Julio Cesar Kimbrough DATE OF SERVICE: 10/28/17 This is a left upper extremity EMG and nerve conduction study performed on this 47-year-old female with a possible ganglion cyst over her left wrist, as well as radiation of pain and nonspecific achiness in all of her fingers as well as her forearm. Left upper extremity sensory and motor nerve conduction studies performed demonstrating normal median motor and sensory, ulnar motor and sensory, and radial sensory responses. The median and ulnar F waves are symmetrically preserved. Left upper extremity needle electromyography was performed. Muscles evaluated included the first dorsal interosseous, abductor pollicis brevis, brachioradialis, biceps, and triceps muscles. All muscles demonstrated normal insertional activity with absence of pathologic spontaneous activity. Motor unit potential recruitment pattern and amplitude was normal in all muscles tested. Impression: Normal EMG and nerve conduction study of the left upper extremity 10/28/17 1103 <Electronically signed by Tony Chirinos MD> Date Tony Chirinos MD CC: Julio Cesar Kimbrough DO; Tony Chirinos MD; OUT OF TOWN DOCTOR Date Dictated: 10/28/17 1100 Date Transcribed: 10/28/17 1100 Tire Fabricator: NF Signed MDRD EGFR Collected: 10/25/2017 Status: F Source: [facility] 11:12 AM HEALTH SYSTEM REPOSITORY TYPE CODE TESTS RESULT OUT OF RANGE REFERENCE UNITS LAB LGFRF(LOINC >60mL/min/1.73m ) 2 eGFR >60 Result Comment: If the patient is , multiply the result by 1.210. Performed By: #### LGFR #### [place] [address] CREATININE BLOOD Collected: 10/25/2017 Status: F Source: [facility] 10:35 AM HEALTH SYSTEM REPOSITORY TYPE CODE TESTS RESULT OUT OF REFERENCE UNITS RANGE LAB LCREA(LOIN 0.51-0.95 mg/dL C) Creatinine Blood 0.66 Performed By: #### LCREA #### [place] [address] PROGRESS Observed: 08/28/2017 Status: COMPLETED Source: [place] 1:15 PM [facility] [place] REPOSITORY HNO ID: [id number] Author: Mary Huynh Service: (none) Author Type: Physician Type: Progress Notes Filed: 09/02/2017 8:24 PM Note Text: LOCATION [place] PCP:DO Norma Edwardsmary came to the appointment by herself for a Chest PainPatient feels Chest pain. Is the patient having any pain? No. Pain 0 on scale of 0-10. Anne Moreno Ma SUBJECTIVE No chest pain, pressure or tightness; No palpitation, no complaints of dizziness, syncope or near syncope; No dyspnea, No complaints of PND, orthopnea or ankle edema; Activity: adequate REVIEW OF SYSTEMS EENT: No complaints of vision, mac. deg, cataracts, hearing RESP: negative for SOB, emphysema, asthma GI: negative for PUD, jaundice, carla, HH, GERD, liver P VASC: negative for leg cramps, v vein, Hem/Onc: negative for cancer, anemia, bleed diath Gent Uro: negative for UT, prostate, stones Neuro: negative for migraine, Sz, TIA, stroke, carotid Rheum: negative for arthralgia, osteoporosis Mental: negative for anxiety, or depression. ET-[place]: Social Family history and Social history reviewed:Yes CARDIAC STATUS: Chest Pain: recurrent, sharp, not ex Dyspnea: Negative Ankle Edema: Negative Arrhythmia: Palpitations frequent without symptoms of hemodynamic compromise, gradual not sudden onset. Functional Capacity: average daily living activities PAST MEDICAL HISTORY Diagnosis Date - Anxiety - Aortic regurgitation 2+ per echo 04/2014 - Chronic SI joint pain - GERD (gastroesophageal reflux disease) - High cholesterol - HTN (hypertension) - Low grade squamous intraepithelial lesion (LGSIL) on cervical Pap smear 08/31/2015 HPV pos - Tobacco use Medications as populated by [facility] without verification by MD: Cardiac medications reviewed by myself during appointment. Medications Include losartan/hydrochlorothiazide(HYZAAR 100 MG-25 MG TAB) Take one(1) tablet daily. ibuprofen (MOTRIN) 800 mg tablet Take 1 tablet by mouth every 8 hours as needed for Pain. simethicone, chewable (MYLICON) 80 mg chewable tablet Take 1 tablet by mouth every 6 hours as needed. aspirin 81 mg chewable tablet Take 81 mg by mouth once daily. Aspirin, Buffered 81 mg tab Take by mouth once daily. simvastatin (ZOCOR) 40 mg tablet Take 40 mg by mouth daily at bedtime. ALPRAZolam (XANAX) 0.5 mg tablet Take 0.5 mg by mouth at bedtime as needed. lansoprazole (PREVACID) 30 mg ORAL capsule Take 30 mg by mouth once daily. @Allergies:Codeine, Medications reviewed by MD, Side effects of meds discussed, Problem List reviewed:Yes PHYSICAL EXAM BP 160/90 (BP Site: Right Arm, BP Position: Sitting) Pulse 101 Resp 16 Ht 160 cm (5' 3) Wt 67.6 kg (149 lb) LMP 12/16/2015 SpO2 97% BMI 26.39 kg/m2 BMI 26.39 kg/(m2) AAOX3: Moves 4 extremities, not pale, no cyanosis HEENT:Airway clear, face symmetrical and no xanthelasma. NECK: no JVD, no carotid bruits on either side, no thyroidmegaly LUNGS:Somewhat decreased but symmetrical BS,CTA no crackles or wheezing ABDOMEN: soft, non tender, no masses, BS+, no bruit. HEART:PMI non-palpable, RRR, S1+,S2+, A2,P2, no S3 or S4, no murmurs, clicks or rubs. EXT: no edema, no clubbing, peripheral pulses present bilaterally. SKIN: no rash or lumps Last Lab Drawn: TSH 1.240 06/13/2017 ProBNP 23 06/13/2017 Triglyceride 97 06/13/2017 HDL Cholesterol 53 06/13/2017 LDL 171 06/13/2017 Cholesterol, Total 243 06/13/2017 IMPRESSION 1. Chest pain, not typical, no obstructive CAD by heart staff 12/16/2013, nuclear stress test negative 2. Palpitations, frequent, recent events recorder 07/08 - 08/06/2017 revealed no significant arrhythmias. Now on Metoprolol succ 50 3. Mild aortic regurgitation with relative mild stenosis. 4. Hypertension, borderline controlled 5. Hyperlipidemia: LDL 177 on 07/17/2017, now on Crestor 20 6. Cigarette smoking, counseled again today. 7. Recent shoulder surgery 8. Back pain, carpal tunnel, spinal injections, anxiety PLAN 1. Order test: LABS CMP FLP Mag Bnp , forms of tests given to patient Yes. 2. Plain stress test 09/17/2017. 3. Discussed results of :EVENT RECORDER 4. Discussion: Advised to increase level of activity, Advised to call if questions, symptoms or concerns, Discussed problem list with patient. 5. Advised against cigarette smoking 6. RT office 1 month. 7. Follow up with PCP, Roberto Carlos Gloria DO for all non-cardiac problems Mary Huynh M.D. ALLERGIES ALLERGIES DATE TYPE / CODE NAME / CODE REACTION SEVERITY SOURCE 02/24/2018 Drug codeine/Q32464 Itching Unknown [facility]160 15[facility] [address]SNOMED Repository CT) 02/24/2018 Drug gabapentin/F00 Swelling Unknown [facility] Allergy/4160 [id number]([place] [id number](SNOMED ) Repository CT) 09/04/2006 DRUG CODEINE ITCHING [facility] INGREDI/4195 Other [place] [address]752(SNOMED Repository CT) ENCOUNTERS ENCOUNTERS ADMIT/DISCHARGE ACCOUNT ADMITTING ENCOUNTER LOCATION SOURCE NUMBER CLASS 08/11/2018/08/11/19 [id number] Ambulatory [address] Repository 07/14/2018/07/15/20 [id number] Ambulatory [address] Repository 07/08/2018 [id number] Ambulatory [facility] Hospital ing:[facility] Repository 05/20/2018/05/20/20 [id number] Emergency [address] Repository 04/08/2018 [id number] Ambulatory BMSBuilding:Kory Basurto [facility] Repository 02/24/2018 [id number] Ambulatory BMSBuilding:Kory Basurto MS[facility] Repository 01/17/2018/01/18/20 [id number] Emergency [address] Repository 01/13/2018/01/14/20 [id number] Ambulatory BMSBuilding:Kory Vila MS.[facility] Repository 01/09/2018 [id number] Ambulatory BMSBuilding:W [facility] Repository 01/08/2018 [id number] Ambulatory [facility] Hospital ing:PSN Repository 12/25/2017 [id number] Ambulatory [facility] Hospital ing:PSN Repository 12/25/2017 [id number] Ambulatory BMSBuilding:W [facility] Repository 12/18/2017/12/19/19 [id number] Ambulatory BMSBuilding:Kory Vila [facility] Repository 12/04/2017/12/05/19 [id number] Ambulatory BMSBuilding:Axel Basurto [facility] Repository 12/03/2017/12/05/19 [id number] Vidhya Saavedra Ambulatory [address] Hospital ing:PCURoom: Repository [id number]: 1 12/03/2017 [id number] Vidhya Saavedra Ambulatory BMSBuilding:Kory Basurto MS.[facility] Repository 12/03/2017 [id number] Vidhya Saavedra Ambulatory BMSBuilding:Kory Basurto MS[facility] Repository 12/03/2017/12/05/19 [id number] Ambulatory BMSBuilding:W Sb [facility] Hospital Repository 11/05/2017 [id number] [facility] Rep[facility] 10/28/2017 [id number] Ambulatory [facility] Center ing:PSN Repository PAYERS PAYERS ENCOUNTER GUARANTOR PAYER SUBSCRIBER SOURCE 07/08/2018 NANCIE A Primary NANCIE A Sb [id number] C[place] Insurance[facility] DAVISDOB[facility] Number: [id number] Hospital [id number]: 330 [id number] Repository [phone] () Date:2018-07-08 07/08/2018 Secondary NOT GIVENUNK [place] Insurance:SELF PAY [facility] Number: Effective Repository Date:2018-07-08 04/08/2018 NANCIE A Primary NANCIE A Sb [id number] CAMP Insurance:BUCKEYE NOAB: [facility] [id number] Hospital [address]Oxy: (330) PLANPolicy Number: Repository [phone] () [id number] Date:3213-45-91WX [address] [place] [address]GL: 04/08/2018 Secondary NOT GIVENUNK Sb Insurance:SELF PAY [facility] Number: Effective Repository Date:2018-03-31 02/24/2018 NANCIE A Primary NANCIE A Sb [id number] C[place] Insurance:BUCKEYE JAMESDOB: [facility] [id number] Hospital 58453Yzr: (330) PLANPolicy Number: Repository [phone] () [id number] Date:4241-71-93MH [address] [place] [address] 913[address]HT: 02/24/2018 Secondary NOT GIVENUNK [place] Insurance:SELF PAY [facility] Number: Effective Repository Date:2017-12-18 01/13/2018 NANCIE A Primary NANCIE A Sb [id number] C[place] Insurance:BUCKEYE JAMESDOB: [facility] [id number] Hospital 20224Jwv: (330) PLANPolicy Number: Repository [phone] () [id number] Date:7049-65-88GK BOX [facility] Center[facility]aceMAGUECHEYENNEYOLY SAMPSON [address]TW: 01/13/2018 Secondary NOT GIVENUNK [place] Insurance:SELF PAY [facility] Number: Effective Repository Date:2018-01-09 01/09/2018 NANCIE A Primary NANCIE A Sb [id number] C[place] Insurance:MELANIE RAMIREZDOB: [facility] [id number] Hospital 84[address]Mdo: (330) PLANPolicy Number: Repository [phone] () [id number] Date:6009-99-07[address] [place] [address] [place] [address]CX: 01/09/2018 Secondary NOT GIVENUNK [place]b Insurance:SELF PAY [facility] Number: Effective Repository Date:2018-01-09 01/08/2018 NANCIE A Primary NANCIE A [place] [id number] CAMP Insurance:MELANIE JIMENESB: [facility] [id number] Hospital 77674Azw: (330) PLANPolicy Number: Repository [phone] () [id number] Date:6611-94-26UL [address] [place] [address] [place] [address]EZ: 01/08/2018 Secondary NOT GIVENUNK [place] Insurance:SELF PAY [facility] Hospital Number: Effective Repository Date:2017-12-18 12/25/2017 NANCIE A Primary NANCIE A [place] [id number] C[place] Insurance:MELANIE JIMENESB: [facility] [id number] Hospital [address]Gvh: (330) PLANPolicy Number: Repository [phone] () [id number] Date:6757-16-51VE [address] [place] [address] [place] [address]WT: 12/25/2017 Secondary NOT GIVENUNK S[place] Insurance:SELF PAY [facility] Number: Effective Repository Date:2017-12-18 12/25/2017 NANCIE A Primary NANCIE A Sb [id number] C[place] Insurance:ANGIEEYE JAMESDOB: [facility] [id number] Hospital [address]Szx: (330) PLANPolicy Number: Repository [phone] () [id number] Date:1364-57-12DC [address] [address]KT: 12/25/2017 Secondary NOT GIVENUNK [place]b Insurance:SELF PAY [facility] Hospital Number: Effective Repository Date:2017-12-25 12/18/2017 NANCIE A Primary NANCIE A Sb [id number] C[place] Insurance:BUCKEYE JAMESDOB: [facility] [id number] [facility] [address]Rod: (330) PLANPolicy Number: Repository [phone] () [id number] Date:9495-48-68N[place] [address] [address]GE: 12/18/2017 Secondary NOT GIVENUNK [place] Insurance:SELF PAY [facility] Hospital Number: Effective Repository Date:2017-12-16 12/04/2017 NANCIE A Primary NANCIE A [place] [id number] CAMP Insurance:MELANIE RAMIREZDOB: [facility] [id number] Hospital [address]Gde: (330) PLANPolicy Number: Repository [phone] () [id number] Date:2796-81-17TO [address] [address]NQ: 12/04/2017 Secondary NOT GIVENUNK Sb Insurance:SELF PAY [facility] Hospital Number: Effective Repository Date:2017-12-04 12/03/2017 Nancie A Primary Nancie A Sb [id number] [place] Insurance:ANGIEEYE JamesDOB: [facility] [id number] Hospital [address]Wlg: (330) PLANPolicy Number: Repository [phone] () [id number] Date:6888-88-00AR [address]OX [facility] Center[facility] YOLY [address]JJ: 12/03/2017 Secondary NOT GIVENUNK [place] Insurance:SELF PAY [facility] Number: Effective Repository Date:2017-12-03 12/03/2017 Nancie A Primary Nancie A [place] [id number] CAMP Insurance:BUCKEYE JamesDOB: [facility] [id number] Hospital 215[address]Zdh: (330) PLANPolicy Number: Repository [phone] () [id number] Date:9730-61-76FT [address] [place] [address] [place] [address]HK: 12/03/2017 Secondary NOT GIVENUNK Sb Insurance:SELF PAY [facility] Hospital Number: Effective Repository Date:2017-12-03 12/03/2017 Nancie A Primary Nancie A Sb [id number] [place] Insurance:BUCKEYE JamesDOB: [facility] [id number] Hospital [address]Xkd: (330) PLANPolicy Number: Repository [phone] () [id number] Date:9494-24-49KP [address] [place], [place] [address] [address]CV: 12/03/2017 Secondary NOT GIVENUNK [place] Insurance:SELF PAY [facility] Hospital Number: Effective Repository Date:2017-12-03 12/03/2017 NANCIE A Primary NANCIE A Sb [id number] C[place] Insurance:BUCKEYE JAMESDOB: [facility] [id number] Hospital 586[address]Gvx: (330) PLANPolicy Number: Repository [phone] () [id number] Date:1134-84-13IG [address] [place], [place] [address]Y[place] [address]IX: 12/03/2017 Secondary NOT GIVENUNK [place] Insurance:SELF PAY [facility] Hospital Number: Effective Repository Date:2017-12-03 11/05/2017 Nancie A Primary Nancie A Sb [id number] C[place] Insurance:BUCKEYE JamesDOB: [facility] [id number] Hospital [address]Cja: (330) PLANPolicy Number: Repository [phone] () [id number] Date:5748-95-88SV [address] [address]JD: 11/05/2017 Secondary NOT GIVENUNK Sb Insurance:SELF PAY [facility] Number: Effective Repository Date:2017-11-05 10/28/2017 Nancie A Primary Nancie A [place] [id number] [place] Insurance:MELANIE JimenesB: [facility] [id number] Hospital [address]Cfw: (330) PLANPolicy Number: Repository [phone] () [id number] Date:9109-51-73VX [address] [address]TA: 10/28/2017 Secondary NOT GIVENUNK [place] Insurance:SELF PAY [facility] Number: Effective Repository Date:2017-08-26
== END ==
PROVIDERS: Referring Provider Otolaryngology Otolaryngology/Facial Plastic Surgery; Visit Provider Otolaryngology Otolaryngology/Facial Plastic Surgery
DX: J32.9 Chronic sinusitis, unspecified (principal)
CPT/HCPCS: 87070; 87205

== ENCOUNTER → 2020-03-14 | Outpatient (CLI) | payer MEDICAID, SELFPAY ==
[2018-01-13 10:11] VITALS: BMI 28.9
--- NOTE | 2020-03-14 11:01 | RAD_ITS ---
STUDY: X-RAY CHEST REASON FOR EXAM: Female, 50 years old. Preop. No chest complaints. TECHNIQUE: PA and lateral views of the chest. COMPARISON: 12/03/2017. FINDINGS: The lungs are clear and expanded. There is no demonstrated pleural abnormality. Normal size heart. Normal mediastinum and andreina. Normal visualized pulmonary arteries. Normal visualized aortic arch and descending thoracic aorta. Normal visualized thoracic spine. Normal visualized ribs, clavicles, and shoulders. There is no demonstrated abnormality of the visualized soft tissue structures of the upper abdomen. RAD/Chest PA and Lateral IMPRESSION: No acute cardiopulmonary disease or interval change. Electronically Signed: Ash Lo DO at 20:00 EDT Tel [phone], Service support ,
--- NOTE | 2020-03-14 11:04 | EKG12_ITS ---
Test Reason : PRE OP Blood Pressure : / mmHG Vent. Rate : 080 BPM Atrial Rate : 080 BPM P-R Int : 130 ms QRS Dur : 094 ms QT Int : 404 ms P-R-T Axes : 063 043 019 degrees QTc Int : 465 ms Normal sinus rhythm Normal ECG Confirmed by ANGIE AUSTIN ([id number]), editorial manager SHABANA HANEY ([id number]) on 03/20/2020 9:45:39 AM Referred By: Alan Young Confirmed By:ANGIE AUSTIN
[2020-03-14 11:17] LABS: Hematocrit 43.1 % (37-47); Hemoglobin 14.3 g/dL (12.0-15.0); Mean Corp Hgb Conc 33.2 g/dL (32-36); Mean Corpuscular Hgb 32.2 pg (27.0-32.0); Mean Corpuscular Volume 97.1 fL (81-99); Mean Platelet Vol. 11.2 fl (6.2-12.0); Platelet Count 327 K/mm3 (150-450); RBC Distribution Width CV 13.3 % (11.6-14.6); RBC Distribution Width SD 48.1 fl (35.1-43.9); Red Blood Count 4.44 M/mm3 (4.2-5.4); White Blood Count 7.2 K/mm3 (4.4-11.0)
[2020-03-14 11:40] LABS: Anion Gap 4 (5-15); BUN 9 mg/dL (7-18); BUN/Creat Ratio 13.1 RATIO (10-20); Calcium,Total 9.2 mg/dL (8.5-10.1); Chloride 105 mmol/L (98-107); Creatinine, Serum 0.69 mg/dL (0.55-1.02); EST Glomerular Filtration Rate 96 mL/min (>60); Est Glom Filt Rate - Afr Amer 116 mL/min (>60); Glucose 105 mg/dL (74-106); Potassium 3.4 mmol/L (3.5-5.1); Sodium Level 138 mmol/L (136-145)
== END | disposition home or self-care (01) ==
LOC: LAB 10:51
PROVIDERS: Referring Provider Physician Assistant; Visit Provider Physician Assistant
DX: Z01.818 Encounter for other preprocedural examination (principal); E11.9 Type 2 diabetes mellitus without complications; F17.200 Nicotine dependence, unspecified, uncomplicated; Z11.59 Encounter for screening for other viral diseases
CPT/HCPCS: 36415; 71046; 80048; 85027; 87635; 93005; 94799; U0003

== ENCOUNTER → 2020-03-14 | Outpatient (CLI) | payer MEDICAID, SELFPAY ==
[2018-01-13 10:11] VITALS: BMI 28.9
== END | disposition home or self-care (01) ==
LOC: MTDU 11:43
PROVIDERS: Referring Provider Physician Assistant; Visit Provider Physician Assistant
DX: Z11.59 Encounter for screening for other viral diseases (principal)
CPT/HCPCS: 87635; U0003

== ENCOUNTER → 2020-04-05 | Outpatient (CLI) | payer MEDICAID, SELFPAY ==
--- NOTE | 2020-04-05 09:34 | VDLE_ITS ---
Reason For Study: Lower leg pain RIGHT GSV is normal. CFV is compressible, spontaneous, phasic, competent and demonstrates normal augmentation. FV is compressible, spontaneous, phasic, competent and demonstrates normal augmentation. POP V is compressible, spontaneous, phasic, competent and demonstrates normal augmentation. T/P Trunk is compressible. PTV is compressible. RT PerV is compressible. Procedure Exam performed in department. A preliminary report was called and/or faxed to Mary. Interpretation Summary Deep veins of the right lower extremity are patent and compressible segmentally. There is no evidence of right lower extremity deep vein thrombosis. Valvular competence appears intact within the proximal deep venous system on the right . The right great saphenous vein appears patent and compressible segmentally. Ordering Physician: Lima Hernandez Performed By: Lupe Quinones RVT
== END | disposition home or self-care (01) ==
PROVIDERS: Referring Provider Registered Nurse; Visit Provider Registered Nurse
DX: M79.661 Pain in right lower leg (principal)
CPT/HCPCS: 93971

== ENCOUNTER 2020-07-17 09:54 | Day surgery (SDC) | payer MEDICAID, SELFPAY ==
[2020-07-14 09:22] LABS: Hematocrit 45.2 % (37-47); Hemoglobin 14.7 g/dL (12.0-15.0); Mean Corp Hgb Conc 32.5 g/dL (32-36); Mean Corpuscular Hgb 31.8 pg (27.0-32.0); Mean Corpuscular Volume 97.8 fL (81-99); Mean Platelet Vol. 11.2 fl (6.2-12.0); Platelet Count 356 K/mm3 (150-450); RBC Distribution Width CV 13.4 % (11.6-14.6); RBC Distribution Width SD 49.4 fl (35.1-43.9); Red Blood Count 4.62 M/mm3 (4.2-5.4); White Blood Count 11.1 K/mm3 (4.4-11.0)
[2020-07-14 09:47] LABS: Anion Gap 6 (5-15); BUN 20 mg/dL (7-18); BUN/Creat Ratio 24.8 RATIO (10-20); Calcium,Total 9.4 mg/dL (8.5-10.1); Chloride 105 mmol/L (98-107); Creatinine, Serum 0.81 mg/dL (0.55-1.02); EST Glomerular Filtration Rate 80 mL/min (>60); Est Glom Filt Rate - Afr Amer 97 mL/min (>60); Glucose 100 mg/dL (74-106); Potassium 3.7 mmol/L (3.5-5.1); Sodium Level 139 mmol/L (136-145)
[2020-07-17] MEDS: Lactated Ringers 1,000 ML 100 ML IV (10:17)
[2020-07-17 10:18] VITALS: BP 110/68; PULSE 80; RESP 16; TEMP 37.2; O2SAT 96; BMI 31.0
[2020-07-17] MEDS: Cefazolin 2 GM in 0.9% Normal Saline 100 ML IV (11:45)
[2020-07-17] MEDS: Epinephrine (1 mg/ml) 1 MG/ML VIAL (12:18)
[2020-07-17] MEDS: Bupiv/Epi 0.5% Mpf 30 ML Vial (12:18)
--- NOTE | 2020-07-17 12:50 | PCM.OPRPT ---
Report of Operation Date of Procedure: 07/17/20 Pre-Operative Diagnosis: SAIS, Subclavicular impingement, Type 5 labral tear with previous biceps temotomy, Exuberant subacromial scar tissue, multiple intra-articular loose bodies right shoulder Post-Operative Diagnosis: same, rotator cuff intact Surgery/Procedure Performed:: Arthroscopic debridement of labrum, ASD with lysis of scar tissue, Maryjane procedure, removal of intra-articular loose bodies environmental field services technician: Lima Hernandez NP Type of Anesthesia:: General/Regional Anesthesiologist: Mega Hinkle VTE Documentation VTE Present on Admission: No VTE Mechan Device Prophylaxis: SCD's, Thigh High RENE Hose VTE Pharm Prophylaxis ordered?: No Reason prophylaxis not ordered:: Treatment Not Indicated
[2020-07-17 13:09] VITALS: BP 110/68; BP 148/106; PULSE 100; RESP 16; TEMP 36.7; O2SAT 96
[2020-07-17 13:25] VITALS: BP 110/68; BP 148/74; PULSE 82; RESP 16; O2SAT 96
[2020-07-17 13:30] VITALS: BP 110/68; BP 132/58; PULSE 78; RESP 16; O2SAT 98
[2020-07-17 13:47] VITALS: BP 110/68; BP 124/83; PULSE 77; RESP 16; TEMP 36.8; O2SAT 99
--- NOTE | 2020-07-17 13:52 | SUR.PHASEI ---
WHILE IN PACU, HAS REPEATEDLY REPORTED FEELING LIKE SHE CANNOT BREATH, NO SHORTNESS OF BREATH, NO DISTRESS, LUNGS CLEAR, VSS. HAD INTERSCALENE NERVE BLOCK PRE-OP. SPO2 95-99% THE ENTIRE TIME.
[2020-07-17 14:15] VITALS: BP 110/68
== END 2020-07-17 14:21 | disposition home or self-care (01) ==
LOC: SDC 09:55 → AC 09:56
PROVIDERS: Anesthesiology; Referring Provider Orthopaedic Surgery; Visit Provider Orthopaedic Surgery
PROC: (CPT 29806; principal; 2020-07-17 11:10)
DX: S43.491A Other sprain of right shoulder joint, initial encounter (principal); M75.01 Adhesive capsulitis of right shoulder; M24.011 Loose body in right shoulder; I10 Essential (primary) hypertension; E78.00 Pure hypercholesterolemia, unspecified; F17.210 Nicotine dependence, cigarettes, uncomplicated; J44.9 Chronic obstructive pulmonary disease, unspecified; K21.9 Gastro-esophageal reflux disease without esophagitis; F41.9 Anxiety disorder, unspecified; Z20.828 Contact with and (suspected) exposure to other viral communicable diseases; Z79.899 Other long term (current) drug therapy; Z79.51 Long term (current) use of inhaled steroids; Z86.73 Personal history of transient ischemic attack (TIA), and cerebral infarction without residual deficits; X58.XXXA Exposure to other specified factors, initial encounter; Y93.89 Activity, other specified; Y92.89 Other specified places as the place of occurrence of the external cause; Y99.8 Other external cause status
CPT/HCPCS: 01630; 29822; 29824; 29825; 36415; 80048; 85027; 87426; C9803; J7120; J2405

== ENCOUNTER → 2020-09-26 07:25 | Outpatient (CLI) | payer MEDICAID, SELFPAY ==
--- NOTE | 2020-09-26 07:27 | CT_ITS ---
STUDY: CT SCAN LOWER EXTREMITY RIGHT REASON FOR EXAM: Female, 50 years old. SPRAIN. ENRIQUE protocol. RADIATION DOSAGE (If Supplied By Facility): CTDIvol = ( 20.10 ) mGy, DLP = ( 1095.12 ) mGycm. Individualized dose optimization techniques were used for this CT.? TECHNIQUE: Multiple axial tomographic images of the right hip, right knee and right ankle joints were obtained. Coronal and sagittal reconstruction was obtained as well. COMPARISON: None. FINDINGS: Imaging of the right hip joint was obtained. No significant joint space narrowing is seen. No evidence of joint effusion. Imaging of the knee joint was obtained. There is a marked degree of joint space narrowing involving the medial compartment of the knee joint with mild subchondral sclerosis of the medial femoral condyle as well as the medial tibial plateau. Small joint effusion. Imaging of the ankle joint was obtained as well. No significant abnormality is seen. CT/Extremity Lower without Contra IMPRESSION: Markings degree of joint space narrowing involving the medial compartment of knee joint. Tiny joint effusion. Electronically Signed: Archie Max MD at 9:12 EST , Service support ,
== END ==
PROVIDERS: Referring Provider Orthopaedic Surgery; Visit Provider Orthopaedic Surgery
DX: S43.491D Other sprain of right shoulder joint, subsequent encounter (principal)
CPT/HCPCS: 73700

== ENCOUNTER 2020-10-09 07:09 | Day surgery (SDC) | payer MEDICAID, SELFPAY ==
--- NOTE | 2020-09-27 10:30 | EKG12_ITS ---
Test Reason : PREOP Blood Pressure : / mmHG Vent. Rate : 078 BPM Atrial Rate : 078 BPM P-R Int : 140 ms QRS Dur : 082 ms QT Int : 390 ms P-R-T Axes : 066 051 032 degrees QTc Int : 444 ms Normal sinus rhythm Normal ECG Confirmed by ANSLEY LUNA, TARUN ([id number]), photo editor SHABANA HANEY ([id number]) on 09/28/2020 1:02:58 PM Referred By: Yoel Zheng Confirmed By:TARUN PANCHAL MD
[2020-09-27 11:28] LABS: Magnesium 2.4 mg/dL (1.6-2.6)
[2020-10-09] VITALS (11 sets, daily range): BP systolic 102–142; BP diastolic 49–79; PULSE 70–98; RESP 12–18; TEMP 36–36.8; O2SAT 92–99; BMI 31.2
[2020-10-09] MEDS: Acetaminophen 500 MG Tablet 1000 MG PO ×2 (07:53→14:23)
[2020-10-09] MEDS: Lactated Ringers 1,000 ML 100 ML IV (07:57)
[2020-10-09] MEDS: Cefazolin 2 GM in 0.9% Normal Saline 100 ML IV (09:00)
[2020-10-09 09:10] LABS: Bedside Glucose 107 mg/dL (70-110)
--- NOTE | 2020-10-09 09:15 | KNEE_PTH ---
PATIENT: KARLA SUTHERLAND LOC: [facility] U#:[id number] AGE/SX: 50/F ROOM: RE10/09/[address]: Dr. Yoel Zheng DO : 1970 BED: DIS: 10/09/2020 SPEC #: [id number] RECD: 10/09/20 12:28 STATUS: UMAIR NASRIN #: [id number] [place]: 10/09/20 09:[address]: Yoel Zheng DEPT: SURGICAL PATHOLOGY RECD BY: Alina Yip Tissues: Knee, NOS Procedures: Decalcification bone/plaque Surgery Specimen Level IV HEADER OPERATION: ERAS, total knee replacement robotic arm assist PRE-OP DIAGNOSIS: Primary osteoarthritis right knee TISSUE SUBMITTED: Bone and soft tissue right knee MICROSCOPIC DIAGNOSIS Bone and soft tissue of right knee, total knee resection: Severe degenerative joint disease. AM:demarcus 10/13/2020 MICROSCOPIC DESCRIPTION Slides are reviewed. GROSS DESCRIPTION Received is one container designated bone and soft tissue right knee. The specimen consists of multiple fragments of singh-yellow bone measuring in aggregate 15 x 11 x 1.5 cm. Also in the specimen container are multiple fragments of yellow-white soft tissue measuring in aggregate 2 x 1 x 0.2 cm. A number of bony fragments contain articular surfaces consistent with tibial plateau and femoral condyle and displaying prominent osteophyte formation, eburnation, and bone erosion. Partition Notcher sections are submitted in two cassettes as follows: 1 - soft tissue, 2 - bone after decalcification. / AM:demarcus 10/10/20 TC:5 CPT: 15369, 12499
--- NOTE | 2020-10-09 10:31 | PCM.OPRPT ---
Report of Operation Date of Procedure: 10/09/20 Pre-Operative Diagnosis: OA right knee Post-Operative Diagnosis: same Surgery/Procedure Performed:: Robotic assisted Right TKR [employer] enterprise portal consultant: Alan Young Type of Anesthesia:: Spinal Anesthesiologist: Mega Hinkle Specimen's removed: femoral bone Estimated Blood Loss (mL): 20 cc Fluids Replaced: 1000 cc crystalloid - Admit VTE Documentation VTE Present on Admission: No VTE Mechan Device Prophylaxis: SCD's, Thigh High RENE Hose VTE Pharm Prophylaxis ordered?: Yes
[2020-10-09] MEDS: Lactated Ringers 1,000 ML 999 ML IV (11:11)
--- NOTE | 2020-10-09 11:15 | RAD_ITS ---
STUDY: X-RAY - RIGHT KNEE REASON FOR EXAM: Female, 50 years old. Post op -- AP and Lateral xray of operative knee in PACU TECHNIQUE: 2 view(s) of the knee. COMPARISON: None. FINDINGS: Normal visualized distal femur. Normal visualized proximal tibia and fibula. Normal proximal tibiofibular articulation. The patient is status post total knee replacement. There is good alignment. Postoperative soft tissue changes. RAD/Knee 1 or 2 Views IMPRESSION: Status post total knee replacement. There is good alignment. Postoperative soft tissue changes. Electronically Signed: Archie Max MD at 12:23 EDT , Service support ,
[2020-10-09] MEDS: proCHLORPERazine 10 MG/2 ML Vial IV (12:44)
[2020-10-09] MEDS: oxyCODONE 5 MG Tablet PO (14:24)
[2020-10-09] MEDS: Cefazolin 1 GM/50 ML BAG IV (14:33)
== END 2020-10-09 16:29 | disposition home or self-care (01) ==
LOC: SDC 07:10 → AC 07:10
PROVIDERS: Anesthesiology; Referring Provider Orthopaedic Surgery; Visit Provider Orthopaedic Surgery
PROC: 0SRC0JZ Replacement of Right Knee Joint with Synthetic Substitute, Open Approach (ICD-10-PCS; CPT 27447; principal; 2020-10-09 08:45)
DX: M17.11 Unilateral primary osteoarthritis, right knee (principal); I10 Essential (primary) hypertension; E78.00 Pure hypercholesterolemia, unspecified; F17.210 Nicotine dependence, cigarettes, uncomplicated; J44.9 Chronic obstructive pulmonary disease, unspecified; K21.9 Gastro-esophageal reflux disease without esophagitis; F41.9 Anxiety disorder, unspecified; Z20.822 Contact with and (suspected) exposure to COVID-19; Z79.51 Long term (current) use of inhaled steroids; Z79.891 Long term (current) use of opiate analgesic; Z79.899 Other long term (current) drug therapy; Z86.73 Personal history of transient ischemic attack (TIA), and cerebral infarction without residual deficits
CPT/HCPCS: 27447; 36415; 73560; 82962; 83735; 87081; 87426; 88305; 88311; 93005; 97161; C1776; C9803; J7120; J2405

== ENCOUNTER → 2021-03-28 | Outpatient (CLI) | payer MEDICAID, SELFPAY | END | disposition home or self-care (01) | LOC: LABSPEC 12:37 | PROVIDERS: Visit Provider Physician Assistant | DX: Z20.822 Contact with and (suspected) exposure to COVID-19 (principal) | CPT/HCPCS: 87635; U0005; U0003 ==